=== PATIENT | female | born 1945 | race Caucasian/White ===

== ENCOUNTER 2023-06-01 17:37 | Inpatient (IN) | payer MEDICARE, OTHER, SELFPAY ==
[2023-06-01] VITALS (8 sets, daily range): BP systolic 95–131; BP diastolic 43–114
--- NOTE | 2023-06-01 11:37 | ED.GENMED ---
History of Present Illness
<VIVIAN Sy - Last Filed: 06/01/23 16:33>
General
Chief Complaint: Urinary Symptoms
Source: patient
Time Seen by Provider: 06/01/23 11:19
Nursing documentation reviewed up to this point in time: agreed with
Travel History
Have you had any contact with someone who has COVID-19?: No
Do you have any symptoms of coronavirus? Fever > 100 degrees, chills, cough, shortness of breath, sore throat, loss of taste or smell, muscle aches, or headache?: No
History of Present Illness
History of Present Illness:
78-year-old female from rehab presents to the ER for evaluation of blood in the urine x2. Patient is presently at [facility] for rehab due to difficulty walking. She does get to the bathroom with assistance and with a walker. She denies any
urinary dysuria frequency.
She has had a wet cough for the past 5 days. She denies any fever chills shortness of breath.
Past History
<VIVIAN Sy - Last Filed: 06/01/23 16:33>
Past History
ED Past Medical History: Arrthythmia (Atrial fibrillation), CAD, HTN, NIDDM and Hyperthyroidism
Social History
Tobacco: Non-smoker
Drug: None
Review of Systems
<VIVIAN Sy - Last Filed: 06/01/23 16:33>
Review of Systems
Allergies reviewed?: Yes
All Other Systems: ROS reviewed and negative except as documented in HPI and ROS
Constitutional: Reports no symptoms
EENT: Reports no symptoms
Respiratory: Reports cough; Denies trouble breathing
Cardiac: Reports no symptoms
ABD/GI: Reports no symptoms; Denies abdominal pain, nausea, vomiting or diarrhea
: Reports other (hematuria ); Denies flank pain
Musculoskeletal: Reports other (thigh painb/l x2 weeks )
Skin: Reports no symptoms
Hematologic/Lymphatic: Reports no symptoms
Psychiatric: Reports no symptoms
Phy Exam
<VIVIAN Sy - Last Filed: 06/01/23 16:33>
General Physical Exam
General Presentation: no apparent distress
General age: appears stated age
General Skin: warm and dry
General Habitus: elderly
General Mental: alert
General Hydration: appears well hydrated
Cardiovascular Exam
Cardiovascular Exam: regular rate/rhythm, no murmur and normal peripheral pulses
Pulmonary Exam
Pulmonary Exam: lungs clear and no respiratory distress
Gastrointestinal Exam
Gastrointestinal Exam: non tender and soft
Neurological Exam
Neurological Exam: alert and oriented x3
Musculoskeletal Exam
Musculoskeletal Exam: full ROM and other ( bilateral distal lower extremity pulses no obvious swelling to thighs or redness)
Skin Exam
Skin Exam: normal color and warm/dry
Psychiatric Exam
Psychiatric Exam: normal mood/affect
Course
<VIVIAN Sy - Last Filed: 06/01/23 16:33>
Orders/Labs/Results
Orders:
Orders
06/01/23 11:43
Cardiac Monitoring- Treatment ONCE
IV Insert/Care/Rem.- Treatment PRN
Chest [CR Chest - 2 Views ] Urgent
Comment:
Reason For Exam: cough
06/01/23 11:48
Electrocardiogram (*1) Stat
Reason for Study: Abdominal Pain
EKG- Treatment ONCE
06/01/23 11:55
COVID-19 Antigen Urgent
Source: Nasal Swab
Complete Blood Count/With Diff Urgent
Comprehensive Metabolic Panel Urgent
Urinalysis Reflex To Culture Urgent
Date Specimen was Collected: 06/01/23
Time Specimen was Collected: 11:52
Urine Microscopic Reflex Cult Urgent
Influenza A+B Rapid Molecular Urgent
AYANA Source: Nasal Swab
Specimen Description:
Urine Culture Urgent
AYANA Source: U
Specimen Description:
Date Specimen was Collected: 06/01/23
Time Specimen was Collected: 11:52
06/01/23 14:05
CT Abd/pel Without Iv Or Oral Urgent
Comment:
Reason For Exam: hematuria
Venous Doppler Lwr Ext Bilat [US Periph Venous LOWER Ext Niko] Urgent
Comment:
Reason For Exam: pain
06/01/23 16:34
CBI- Treatment PRN
Solution: nss
Irrigate to Clear?: Yes
Abnormal Lab Results
06/01/23
11:55
RBC 2.92 L 10^6/uL
(4.20-5.40)
Hgb 9.5 L g/dL
(12.0-16.0)
Hct 28.8 L %
(37.0-47.0)
MCH 32.5 H pg
(27.0-31.0)
RDW 15.1 H %
(11.5-14.5)
Abs Immat Gran (auto) 0.1 H 10^3/uL
(0-0.05)
Absolute Neuts (auto) 9.0 H 10^3/uL
(1.4-6.5)
Absolute Lymphs (auto) 1.0 L 10^3/uL
(1.2-3.4)
Immature Gran % 0.6 H %
(0-0.5)
Neutrophils % 83.4 H %
(42.2-75.2)
Lymphocytes % 9.5 L %
(20.5-51.1)
BUN 39 H mg/dl
(7-17)
Creatinine 1.6 H mg/dL
(0.6-1.0)
Glucose 132 H mg/dl
(70-99)
Calcium 7.9 L mg/dl
(8.4-10.2)
AST 61 H U/L
(14-36)
Alkaline Phosphatase 419 H U/L
(38-126)
Albumin 2.7 L g/dl
(3.5-5.0)
Urine Ketones Trace A
(Negative)
Ur Occult Blood Reflex 4+ A
(Negative)
Urine Nitrite (Reflex) Positive A
(Negative)
Leukocyte Esterase Rfl 2+ A
(Negative)
Urine RBC >100 A /HPF
(0-2)
Urine Albumin (Reflex) 2+ A
(Neg - Trace)
06/01/23 11:55
06/01/23 11:55
Vital Signs
Initial and Last Documented VS:
Initial Vital Signs
Temp Pulse Resp Pulse Ox
98.7 F 96 19 95
06/01/23 10:56 06/01/23 10:56 06/01/23 10:56 06/01/23 10:56
Last Documented Vital Signs
Temp Pulse Resp BP Pulse Ox
98.7 F 90 17 95/59 94
06/01/23 10:56 06/01/23 15:45 06/01/23 15:45 06/01/23 14:20 06/01/23 15:45
Size Painter consulted with Physician
Size Painter consulted with physician?: Yes
Name of Physician Consulted: leon
<Drew Sandra, DO - Last Filed: 06/01/23 16:47>
Orders/Labs/Results
Orders:
Orders
06/01/23 11:43
Cardiac Monitoring- Treatment ONCE
IV Insert/Care/Rem.- Treatment PRN
Chest [CR Chest - 2 Views ] Urgent
Comment:
Reason For Exam: cough
06/01/23 11:48
Electrocardiogram (*1) Stat
Reason for Study: Abdominal Pain
EKG- Treatment ONCE
06/01/23 11:55
COVID-19 Antigen Urgent
Source: Nasal Swab
Complete Blood Count/With Diff Urgent
Comprehensive Metabolic Panel Urgent
Urinalysis Reflex To Culture Urgent
Date Specimen was Collected: 06/01/23
Time Specimen was Collected: 11:52
Urine Microscopic Reflex Cult Urgent
Influenza A+B Rapid Molecular Urgent
AYANA Source: Nasal Swab
Specimen Description:
Urine Culture Urgent
AYANA Source: U
Specimen Description:
Date Specimen was Collected: 06/01/23
Time Specimen was Collected: 11:52
06/01/23 14:05
CT Abd/pel Without Iv Or Oral Urgent
Comment:
Reason For Exam: hematuria
Venous Doppler Lwr Ext Bilat [US Periph Venous LOWER Ext Niko] Urgent
Comment:
Reason For Exam: pain
06/01/23 16:34
CBI- Treatment PRN
Solution: nss
Irrigate to Clear?: Yes
Abnormal Lab Results
06/01/23
11:55
RBC 2.92 L 10^6/uL
(4.20-5.40)
Hgb 9.5 L g/dL
(12.0-16.0)
Hct 28.8 L %
(37.0-47.0)
MCH 32.5 H pg
(27.0-31.0)
RDW 15.1 H %
(11.5-14.5)
Abs Immat Gran (auto) 0.1 H 10^3/uL
(0-0.05)
Absolute Neuts (auto) 9.0 H 10^3/uL
(1.4-6.5)
Absolute Lymphs (auto) 1.0 L 10^3/uL
(1.2-3.4)
Immature Gran % 0.6 H %
(0-0.5)
Neutrophils % 83.4 H %
(42.2-75.2)
Lymphocytes % 9.5 L %
(20.5-51.1)
BUN 39 H mg/dl
(7-17)
Creatinine 1.6 H mg/dL
(0.6-1.0)
Glucose 132 H mg/dl
(70-99)
Calcium 7.9 L mg/dl
(8.4-10.2)
AST 61 H U/L
(14-36)
Alkaline Phosphatase 419 H U/L
(38-126)
Albumin 2.7 L g/dl
(3.5-5.0)
Urine Ketones Trace A
(Negative)
Ur Occult Blood Reflex 4+ A
(Negative)
Urine Nitrite (Reflex) Positive A
(Negative)
Leukocyte Esterase Rfl 2+ A
(Negative)
Urine RBC >100 A /HPF
(0-2)
Urine Albumin (Reflex) 2+ A
(Neg - Trace)
06/01/23 11:55
06/01/23 11:55
Vital Signs
Initial and Last Documented VS:
Initial Vital Signs
Temp Pulse Resp Pulse Ox
98.7 F 96 19 95
06/01/23 10:56 06/01/23 10:56 06/01/23 10:56 06/01/23 10:56
Last Documented Vital Signs
Temp Pulse Resp BP Pulse Ox
98.7 F 90 17 95/59 94
06/01/23 10:56 06/01/23 15:45 06/01/23 15:45 06/01/23 14:20 06/01/23 15:45
<VIVIAN Sy - Last Filed: 06/01/23 16:33>
MDM/Problems Addressed
Differential Diagnosis Includes:
Not limited to hematuria, UTI
MDM/Problems Addressed:
Patient is a 70-year-old female from rehab presents with hematuria. She is on Eliquis for A-fib. She denies any fevers and is afebrile here with a normal white count hemoglobin 9.5, patient's BUN/creatinine mildly elevated 39 1.6 mild renal
insufficiency. Patient does have obvious hematuria on exam and this CAT scan shows distended bladder. Patient came back from CAT scan retaining over 500 mL of urine will place Ozuna,'s plan for CBI.
Other CAT scan findings reviewed shows bilateral pelvic calyceal seal ureteral dilation as well as urethral tortuosity. But no evidence for obstructive ureteral calculus
Chronic conditions affecting care:
On Eliquis for A-fib
<VIVIAN Sy - Last Filed: 06/01/23 16:33>
*Radiology
Radiology exam reviewed: radiology read reviewed
*Pulse Oximetry
Patient hypoxic: no
*EKG
Interpreted by ED Provider?: Yes
Heart Rate: 91
Rate: normal
Rhythm: sinus
Ischemia: non-specific ST changes
*Critical Care Note
Total Time (30-74mins, 75-104mins- exclusive of procedures): Not Applicable
ED Attending Note
<VIVIAN Sy - Last Filed: 06/01/23 16:33>
-
Portions of this chart may have been created with voice recognition software.� Occasional wrong word or��sound alike� substitutions may have occurred due to the inherent limitations of voice recognition software.
<Drew Sandra DO - Last Filed: 06/01/23 16:47>
ED Attending Note
Patient seen and examined by attending physician: Yes
I performed the substantive portion of visit, reviewed & personally made and approve the management plan that is documented in note by myself or STARLA.: Yes
ED Attending Note:
Seen with NEWSPAPER INSERTER examined independently elderly female with hematuria looks like she is in retention based upon bladder scan, will place Ozuna consideration for CBI she is on a blood thinner check urine culture
Discharge Plan
Departure
Patient Disposition: Admit
Date of Disposition: 06/01/23
Time of Disposition: 16:43
Admit to: Med/Surg
Admit to doctor: hosptalist
Presentation/result/management discussed w/ accepting MD/DO: Hospitalist
Patient with high blood pressure during this ER visit?: No
Condition: Fair
Covid-19: Not Applicable
Discharge Problem:
Hematuria, Acute urinary retention, renal insufficicieny
Prescriptions:
No Action
losartan 50 mg Tablet
50 mg PO BID
sennosides [senna] 8.6 mg Tablet
8.6 mg PO BID
clonidine HCl 0.1 mg Tablet
0.1 mg PO BID
acetaminophen [Tylenol] 325 mg Tablet
650 mg PO Q6HPRN PRN (Reason: mild pain)
carvedilol [Coreg] 12.5 mg Tablet
12.5 mg PO BID
isosorbide mononitrate [Imdur] 60 mg Tablet Extended Release 24 Hr
60 mg PO DAILY
magnesium hydroxide [Milk of Magnesia] 400 mg/5 mL Suspension
2,400 mg PO [id number] PRN (Reason: if no bm by 3rd day)
bisacodyl [Dulcolax (bisacodyl)] 10 mg Suppository
10 mg PA DAILY PRN (Reason: if no bm aftr mom)
Fleet Enema 19-7 gram/118 mL Enema
118 ml PA DAILYPRN PRN (Reason: if no bm aftr dulcolax)
docusate sodium [Colace] 100 mg Capsule
100 mg PO BID
gabapentin 300 mg Capsule
300 mg PO TID
furosemide [Lasix] 20 mg Tablet
20 mg PO DAILY
loratadine [Claritin] 10 mg Tablet
10 mg PO DAILY
dexlansoprazole [Dexilant] 60 mg Capsule,Biphase Delayed Releas
60 mg PO DAILY
linagliptin 5 mg Tablet
5 mg PO DAILY
Eliquis 5 mg Tablet
5 mg PO BID
oxycodone [OxyContin] 40 mg Tablet,Oral Only,Ext.Rel.12 Hr
40 mg PO BID
Referrals:
Edwin Ugarte MD [Family Provider] -
Interventions
Interventions:
*Risk Screen - Suicide Last Done: 06/01/23 12:05
*General Assessment Last Done: 06/01/23 12:05
*Neglect/Abuse Screening Last Done: 06/01/23 12:05
ED- Fall Risk Assessment Last Done: 06/01/23 12:05
*ED COVID-19 Vaccine History Last Done: 06/01/23 12:05
ED-Female Genitourinary Assessment Last Done: 06/01/23 11:43
[2023-06-01 12:14] LABS: Urine Albumin 2+ (Neg - Trace); Urine Bilirubin Negative (Negative); Urine Character Slightly Cloudy (Clear); Urine Color Red; Urine Glucose Negative (Negative); Urine Ketone Trace (Negative); Urine Leukocyte 2+ (Negative); Urine Nitrite Positive (Negative); Urine Occult Blood 4+ (Negative); Urine Urobilinogen Negative (Neg - 1+)
[2023-06-01 12:15] LABS: % Basophils 0.2 % (0-2); % Eosinophils 0.5 % (0-6); % Immature Granulocytes 0.6 % (0-0.5); % Lymphocytes 9.5 % (20.5-51.1); % Monocytes 5.8 % (1.7-9.3); % Neutrophils 83.4 % (42.2-75.2); Absolute Eosinophils 0.1 10^3/uL (0-0.7); Absolute Immature Granulocytes 0.1 10^3/uL (0-0.05); Absolute Monocytes 0.6 10^3/uL (0.1-0.6); Hematocrit 28.8 % (37.0-47.0); Hemoglobin 9.5 g/dL (12.0-16.0); Mean Corpuscular Hgb 32.5 pg (27.0-31.0); Mean Corpuscular Volume 98.6 fL (81.0-99.0); Mean Platelet Volume 9.1 fL (7.4-10.4); Nucleated Red Blood Cells % 0 %; Platelet Count 326 10^3/uL (130-400); Red Blood Cell Count 2.92 10^6/uL (4.20-5.40); Red Cell Dist. Width 15.1 % (11.5-14.5); White Blood Cell Count 10.8 10^3/uL (4.8-10.8)
[2023-06-01 12:20] LABS: Urine Red Blood Cell >100 /HPF (0-2)
[2023-06-01 12:32] LABS: ALT (SGPT) 27 U/L (0-35); AST (SGOT) 61 U/L (14-36); Albumin 2.7 g/dl (3.5-5.0); Alkaline Phosphatase 419 U/L (38-126); Blood Urea Nitrogen 39 mg/dl (7-17); Calcium 7.9 mg/dl (8.4-10.2); Carbon Dioxide 29 mmol/L (22-30); Chloride 104 mmol/L (98-107); Glucose 132 mg/dl (70-99); Potassium 4.2 mmol/L (3.5-5.1); Sodium 137 mmol/L (135-145); Total Bilirubin 1.1 mg/dl (0.2-1.3); Total Protein 6.6 g/dl (6.3-8.2); eGFR 32.81
[2023-06-01 13:35] LABS: COVID-19 Antigen Negative (Negative)
--- NOTE | 2023-06-01 17:21 | HPS.HSE ---
Addendum entered and electronically signed by Thomas Cooper MD 06/01/23 20:37:
Patient seen and evaluated with VETERANS SERVICE REPRESENTATIVE, I agree with findings on history physical exam and review of system and impression and plan with modifications as indicated below as needed.
Briefly patient is a 78-year-old female with past medical history significant for hypertension diabetes hyperlipidemia and atrial fibrillation is currently on apixaban, seen to the emergency department with complaints of gross hematuria. She did
have urinary retention on imaging however that she has self denies urinary symptoms including dysuria, frequency or urgency or abdominal pain, fevers or chills. She does report bilateral hip and thigh discomfort. Found to have gross hematuria in
the ED with urinary retention of around 500 mL status post placement of urinary catheter for continuous medical irrigation.
Vital signs stable, hemoglobin down to 9.5 from 11 over 4 years ago. BUN/creatinine are not significantly changed compared to prior at that 9 and 1.6 respectively. Electrolytes otherwise unremarkable. Corrected calcium is 8.2. CT of the abdomen
pelvis consistent with bladder distention and hematuria as well as nonobstructing bilateral lithiasis. Incidental finding of biliary ductal dilation dilatation and multiple intrahepatic gallstones which are nonobstructive.
Exam is as per the VETERANS SERVICE REPRESENTATIVE note.
Patient with gross hematuria likely secondary to anticoagulation. No clear precipitant. Possibly caused by stone, infectious cystitis. Plan is to continue CBI until clearance of gross hematuria. Holding apixaban. Urology consulted. Hemoglobin
and obtain type and screen in a.m. DVT prophylaxis with sequential compression devices at this time. The incidental findings of nonobstructive nephrolithiasis currently managed medically. She does complain of bilateral hip and thigh pain with
osteoporosis versus lytic lesions on the CT. Patient has no obvious signs of malignancy otherwise. Recommend outpatient follow-up with routine age-appropriate malignancy screening. No SUZANNE or hypercalcemia to suggest acute treatment for MM but she
can be screened for this as outpatient as well. Also recommend for imaging such as MRI for bilateral hip pain. No obvious radiculopathy and hip pain as been chronic for months. Incidental finding of nonobstructive intrahepatic gallstones with
normal bilis. Recommend outpatient gi follow up.
Original Note:
Family Physician
-
Family Physician: Edwin Ugarte
Chief Complaint
-
blood in urine
History of Present Illness
78 yo female from rehab presents to the ER for evaluation of blood in the urine x2.� [facility] a [facility] for [facility] due to difficulty ambulating.� She denies urgency, frequency or dysuria. She states she has had frequent UTIs in
the past two years but has never had hematuria before. She has had a productive cough for the past 5 days.� She denies any fever, chills or shortness of breath.
Medical History
Past Medical History
Past Medical History: Reports Arrhythmia (afib on Eliquis ), CHF, GERD, HTN, Hypercholesterolemia, NIDDM and Renal Failure (CKD stage 2)
Past Surgical History: Reports None
Social History
Tobacco: Non-smoker
Alcohol: None
Drug: None
Family History
Family History: Not pertinent
Allergies / Home Medications
Allergies reflects when Allergies were last updated in [email or web address].
Home Medications with original date entered in [email or web address]
Allergy/Medication List:
Allergies
Allergy/AdvReac Type Severity Reaction Status Date / Time
No Known Allergies Allergy Unverified 02/03/18 16:09
Home Medications
acetaminophen 325 mg tablet (Tylenol) 650 mg PO Q6HPRN PRN mild pain 06/01/23
apixaban 5 mg tablet (Eliquis) 5 mg PO BID 06/01/23
bisacodyl 10 mg rectal suppository (Dulcolax (bisacodyl)) 10 mg NM DAILY PRN if no bm aftr mom 06/01/23
carvedilol 12.5 mg tablet (Coreg) 12.5 mg PO BID 06/01/23
clonidine HCl 0.1 mg tablet 0.1 mg PO BID 06/01/23
dexlansoprazole 60 mg capsule,biphase delayed release (Dexilant) 60 mg PO DAILY 06/01/23
docusate sodium 100 mg capsule (Colace) 100 mg PO BID 06/01/23
furosemide 20 mg tablet (Lasix) 20 mg PO DAILY 06/01/23
gabapentin 300 mg capsule 300 mg PO TID 06/01/23
isosorbide mononitrate 60 mg tablet,extended release 24 hr 60 mg PO DAILY 06/01/23
linagliptin 5 mg tablet 5 mg PO DAILY 06/01/23
loratadine 10 mg tablet (Claritin) 10 mg PO DAILY 06/01/23
losartan 50 mg tablet 50 mg PO BID 06/01/23
magnesium hydroxide 400 mg/5 mL oral suspension (Milk of Magnesia) 2,400 mg PO [id number] PRN if no bm by 3rd day 06/01/23
oxycodone 40 mg tablet,crush resistant,extended release 12 hr (OxyContin) 40 mg PO BID 06/01/23
sennosides 8.6 mg tablet (senna) 8.6 mg PO BID 06/01/23
sodium phosphates 19 gram-7 gram/118 mL enema (Fleet Enema) 118 ml NM DAILYPRN PRN if no bm aftr dulcolax 06/01/23
Review of Systems
-
History Source: Patient
A 12 point ROS was completed and negative except as noted: Yes
Constitutional: Reports No Symptoms
EENT: Reports No Symptoms
Respiratory: Reports Cough
Cardiac: Reports No Symptoms
Abdomen/GI: Reports No Symptoms
: Reports Bleeding
Musculoskeletal: Reports No Symptoms
Skin: Reports No Symptoms
Neurological: Reports No Symptoms
Endocrine: Reports No Symptoms
Hematologic/Lymphatic: Reports No Symptoms
Psych: Reports No Symptoms
Physical Exam
Vital Signs
Vital Signs
Temp Pulse Resp BP Pulse Ox
98.7 F 90 17 95/59 94
06/01/23 10:56 06/01/23 15:45 06/01/23 15:45 06/01/23 14:20 06/01/23 15:45
Physical Exam
General: Well Developed and Obese
HEENT: NormoCephalic, Anicteric and Atraumatic
Cardiac: Irregular Rhythm (afib)
Breast: Deferred by me
GI: Soft, Non Tender, Non Distended, Normal Bowel Sounds and Other (hernia)
Rectal: Deferred by Provider
Genito-urinary: Bloody Urine, Ozuna and Continuous Bladder Irrigation
Musculoskeletal: No Clubbing, No Cyanosis, Edema, Left Lower Extremity and Edema, Right Lower Extremity
Skin: Warm and Dry
Neuro: Awake, Alert, Oriented and AO x 3
Hematologic/Lymphatic: No Lymphadenopathy
Psych: Intact Judgment/Insight
Laboratory Results
-
06/01/23 11:55
06/01/23 11:55
Laboratory Results
Total Bilirubin 1.1 mg/dl (0.2-1.3) 06/01/23 11:55
AST 61 U/L (14-36) H 06/01/23 11:55
ALT 27 U/L (0-35) 06/01/23 11:55
Alkaline Phosphatase 419 U/L (38-126) H 06/01/23 11:55
Impression/Plan
-
IMPRESSION/PLAN:
#Hematuria
#Acute Urinary Retention
-Ozuna placed in ED, CBI in place
-Urology c/s
-Urine cx pending
-CT Abdomen IMPRESSION: Status post cholecystectomy. There are numerous rounded foci of increased density within the common hepatic duct and the common bile duct, which are highly suspicious for bile duct calculi. No gross evidence for intrahepatic
bile duct dilation. The common bile duct measures up to 14 mm, which is considered dilated, with top normal considered 10 mm.
Bilateral nephrolithiasis. The bladder is mildly distended. There is bilateral pelvicalyceal and ureteral dilation as well as ureteral tortuosity. No evidence for obstructing ureteral calculus bilaterally. These findings could be on the basis of
moderate bladder distention. Please correlate with the patient having any difficulty in voiding the bladder.
Severe fatty infiltration of the pancreas.
Large overhanging pannus of the abdomen and pelvis. There is also an umbilical broad-based hernia, containing a loop of non obstructed bowel.
#Essential Hypertension
-Continue clonidine, imdur, losartan and coreg
#Atrial fibrillation
-Hold Eliquis
#CHF
-Continue lasix
#NIDDM
-Hold linagliptin
-ISS
#CKD stage 2
-Current cr 1.6, last cr 1.2 in 2018
-avoid nephrotoxic agents
-BMP in am
#Wounds to legs bilaterally
-Wound c/s
DNR- DNR status discussed with patient
DVT Prophylaxis: Eliquis on hold due to hematuria, cannot use SCDs due to b/l leg wounds
--- NOTE | 2023-06-01 17:53 | CON.MD ---
Consultation - Medical
-
see dictated note
pt with no sig prior gu hx
on eliquis
morbid obesity
visiting family- could not get up off toliet- sent to an outside hospital- ? dx
discharged to rehab
has been in a diaper for some time- urine just runs out of her
noticed some blood in the urine
had ct- distended bladder with mild bilateral hydro suspected due to bladder obstruction- no obvious intrinsic bladder mass
3 way dailey placed- on light cbi urine is running just light pink
cx is pending
plan
hold eliquis
continue cbi
[2023-06-01] MEDS: COLACE 100 MG PO (20:54)
[2023-06-01] MEDS: COZAAR 50 MG PO (20:54)
[2023-06-01] MEDS: COREG 12.5 MG PO (20:54)
[2023-06-01] MEDS: CATAPRES 0.100000000000000006 MG PO (20:54)
[2023-06-01] MEDS: TYLENOL 650 MG PO (20:55)
[2023-06-01] MEDS: IMDUR (EXTENDED RELEASE) 60 MG PO (22:38)
[2023-06-01] MEDS: OXYCONTIN (CONTROLLED RELEASE) 40 MG PO (22:38)
[2023-06-01] MEDS: ROBITUSSIN 100 MG PO (22:39)
[2023-06-01] MEDS: NEURONTIN 300 MG PO (22:39)
[2023-06-02] MEDS: ROBITUSSIN 100 MG PO ×4 (05:26→21:44)
[2023-06-02 06:06] VITALS: BMI 38.3
[2023-06-02 06:30] VITALS: BMI 38.3
[2023-06-02 07:15] LABS: % Basophils 0.1 % (0-2); % Eosinophils 0.4 % (0-6); % Immature Granulocytes 0.7 % (0-0.5); % Lymphocytes 11.3 % (20.5-51.1); % Monocytes 7.9 % (1.7-9.3); % Neutrophils 79.6 % (42.2-75.2); Absolute Immature Granulocytes 0.1 10^3/uL (0-0.05); Absolute Lymphocytes 0.9 10^3/uL (1.2-3.4); Absolute Monocytes 0.6 10^3/uL (0.1-0.6); Absolute Neutrophils 6.1 10^3/uL (1.4-6.5); Hematocrit 24.9 % (37.0-47.0); Hemoglobin 8.2 g/dL (12.0-16.0); Mean Corp Hgb Conc. 32.9 g/dL (33.0-37.0); Mean Corpuscular Hgb 32.4 pg (27.0-31.0); Mean Corpuscular Volume 98.4 fL (81.0-99.0); Mean Platelet Volume 9.2 fL (7.4-10.4); Nucleated Red Blood Cells % 0 %; Platelet Count 270 10^3/uL (130-400); Red Blood Cell Count 2.53 10^6/uL (4.20-5.40); Red Cell Dist. Width 14.9 % (11.5-14.5); White Blood Cell Count 7.7 10^3/uL (4.8-10.8)
--- NOTE | 2023-06-02 07:20 | W.PN.URO.CBU ---
Today's Communication / Plan
-
continue cbi- wean as possible
hold eliquis
await ucx result
Assessment / Plan
-
urinary retention
hydro likely secondary to above (cr at baseline)
hematuria
to continue cbi- wean as possible
hold eliquis and other blood thinners
await ucx
possible that pt will need to be discharged with cath for outpt vodiing trail as suspect some chronicity to urinary retention
Diagnosis
-
Date of Service: June 02, 2023
-
Patient Diagnosis:
hematuria
urinary retention
hydro
Subjective
-
pt stable
urine on moderate drip cbi clearing
no discomfort
ucx pending
Objective
-
Vital Signs
Temp Pulse Resp BP Pulse Ox
99.4 F 81 18 108/54 95
06/01/23 23:30 06/01/23 23:30 06/01/23 23:30 06/01/23 23:30 06/01/23 23:30
Intake and Output
06/01/23 06/02/23 06/03/23
06:59 06:59 06:59
Intake Total 248 / 248
Balance 248 / 248
Intake:
Oral fluids 248 / 248
Physical Exam
-
General - no acute distress
Abdomen - soft, non-tender, obese
[2023-06-02 07:26] VITALS: BP 104/65
[2023-06-02 08:06] LABS: ALT (SGPT) 20 U/L (0-35); AST (SGOT) 42 U/L (14-36); Albumin 2.2 g/dl (3.5-5.0); Alkaline Phosphatase 324 U/L (38-126); Blood Urea Nitrogen 36 mg/dl (7-17); Calcium 7.4 mg/dl (8.4-10.2); Carbon Dioxide 28 mmol/L (22-30); Chloride 104 mmol/L (98-107); Estimated Creatinine Clearance 34 ml/min; Glucose 95 mg/dl (70-99); Potassium 3.4 mmol/L (3.5-5.1); Sodium 136 mmol/L (135-145); Total Bilirubin 1.1 mg/dl (0.2-1.3); Total Protein 5.7 g/dl (6.3-8.2); eGFR 32.81
[2023-06-02] MEDS: PROTONIX 40 MG PO (08:40)
[2023-06-02] MEDS: CLARITIN 10 MG PO (08:40)
[2023-06-02] MEDS: COLACE 100 MG PO ×2 (08:40→21:03)
[2023-06-02] MEDS: CATAPRES 0.100000000000000006 MG PO ×2 (08:40→21:04)
[2023-06-02] MEDS: OXYCONTIN (CONTROLLED RELEASE) 40 MG PO ×2 (08:40→21:02)
[2023-06-02] MEDS: LASIX 20 MG PO (08:40)
[2023-06-02] MEDS: COREG 12.5 MG PO ×2 (08:40→21:04)
[2023-06-02] MEDS: NEURONTIN 300 MG PO ×3 (08:40→21:44)
[2023-06-02] MEDS: COZAAR 50 MG PO ×3 (08:41→21:04)
[2023-06-02] MEDS: DESENEX/MITRAZOL/ZEASORB 1 APPLIC TOPICAL ×2 (08:41→21:03)
[2023-06-02] MEDS: KCL 40 MEQ PO (10:07)
--- NOTE | 2023-06-02 11:58 | W.PN.HOSP.TC ---
Today's Communication/Plan
-
start rocephin
follow cultures
check ECHO
Assessment / Plan
Assessment / Plan
pt is a 78 year old female
acute Hematuria with acute retention--apprec urology--CBI continuing--urine now clear--blood culture with gm negative bacilli--urine culture pending but likely the source--CT scan with bilateral nephrolithiasis, bladder distended with bilateral
pelvicalyceal and ureteral dilation as well as ureteral tortuosity. No evidence for obstructing ureteral calculus bilaterally--start rocephin
hypokalemia--replete
Essential Hypertension--Continue clonidine, imdur, losartan and coreg
presumed paroxysmal Atrial fibrillation---Holding Eliquis
CHF-- unknown type--cont lasix--check echo
cough --unclear cause--on rocephin--CXR without acute findings--add tessalon pearles
NIDDM--Hold linagliptin?--ISS
CKD stage 2--Current cr 1.6, last cr 1.2 in 2018--avoid nephrotoxic agents
Wounds to legs bilaterally--Wound c/s
DNR- DNR status was discussed with patient
DVT Prophylaxis: Eliquis on hold due to hematuria, cannot use SCDs due to b/l leg wounds
Anticipated Discharge: > 48 hours
Subjective/Interval History
-
Date of Service: June 02, 2023
pt c/o coughing
Objective Data
-
Labs:
Laboratory Results
06/02/23
06:34
WBC 7.7
Hgb 8.2 L
Hct 24.9 L
Plt Count 270
Sodium 136
Potassium 3.4 L
Chloride 104
Carbon Dioxide 28
BUN 36 H
Creatinine 1.6 H
Glucose 95
Calcium 7.4 L
Total Bilirubin 1.1
AST 42 H
ALT 20
Alkaline Phosphatase 324 H
Vital Signs:
max temp for 24 hours
06/01/23
23:30
Temp 99.4 F
Vital Signs
Temp Pulse Resp BP Pulse Ox
98.4 F 108 17 104/65 93
06/02/23 07:26 06/02/23 07:26 06/02/23 07:26 06/02/23 07:26 06/02/23 07:26
I&O
06/01/23 06/02/23 06/03/23
06:59 06:59 06:59
Intake Total 248 / 248
Output Total 1200 / 1200 1800 / 1800
Balance -952 / -952 -1800 / -1800
Review of Systems
-
All other systems: Reviewed and negative
Respiratory: Reports Cough
Physical Exam
-
General: Well Developed, Well Nourished, No Apparent Distress and Morbidly Obese
HEENT: Normocephalic and Atraumatic; Negative Oxygen
Respiratory: Rhonchi
Cardiac: Regular Rhythm and S1/S2; Negative Murmur
GI: Soft, Nontender, Nondistended and Normal Bowel Sounds
Genito-urinary: Clear Urine and Continuous Bladder Irrigation
Musculoskeletal: No Clubbing, No Cyanosis and No Edema
Neuro: Awake and Alert
Psych: Calm
[2023-06-02] MEDS: STERILE WATER FOR INJECTION 10 ML IV (13:00)
[2023-06-02] MEDS: ROCEPHIN 1000 MG IV (13:01)
--- NOTE | 2023-06-02 15:37 | CM ---
Chart reviewed. Spoke with pt at bedside
Reports was at [facility] - short-term after hospitalization - confirmed with Arely
Lives with daughter and son in law in a one story home
Was ambulating with walker at home, able to adl's with assist
Denies other DME
Has had [facility] in past
PCP - unsure
Pharm - [facility]
PT/OT pending
Plan - anticipate return to [facility] - no auth needed(will need 3 nights)
[2023-06-02 15:42] VITALS: BP 96/44
[2023-06-02] MEDS: IMDUR (EXTENDED RELEASE) 60 MG PO (21:44)
[2023-06-02 23:30] VITALS: BP 103/57
[2023-06-03 06:00] VITALS: BMI 37.3
--- NOTE | 2023-06-03 06:27 | W.PN.URO.CBU ---
Today's Communication / Plan
-
continue cbi= stop at midnight
treat uti
Assessment / Plan
-
urinary retention
hydro likely secondary to above (cr at baseline)
hematuria
proteus uti/bactermia
urine clear on slow drip cbi
hematuria likely secondary to uti/rentention and eliquis
continue cbi today to help clear bladder debris- hold at midnight tonight
start flomax
treat UTI
plan for TOV prior to discharge- although suspect pt prob has some degree of chronic retnetion and may need dailey at time of discharge
will follow
Diagnosis
-
Date of Service: June 03, 2023
-
Patient Diagnosis:
hematuria
urinary retention
hydro
proteus uti/bacteremia
Subjective
-
pt feels ok
urine clear on slow drip cbi
Objective
-
Vital Signs
Temp Pulse Resp BP Pulse Ox
99.2 F 94 20 103/57 93
06/03/23 03:38 06/02/23 23:30 06/02/23 23:30 06/02/23 23:30 06/02/23 23:30
Intake and Output
06/01/23 06/02/23 06/03/23
06:59 06:59 06:59
Intake Total 248 / 248 960 / 960
Output Total 1200 / 1200 2800 / 2800
Balance -952 / -952 -1840 / -1840
Intake:
Oral fluids 248 / 248 960 / 960
Output:
True Urine Output from CBI 1200 / 1200 2800 / 2800
Physical Exam
-
General - no acute distress
Abdomen -nontender
Genitalia - dailey in place
[2023-06-03 06:50] LABS: Hematocrit 23.2 % (37.0-47.0); Hemoglobin 7.6 g/dL (12.0-16.0); Mean Corp Hgb Conc. 32.8 g/dL (33.0-37.0); Mean Corpuscular Hgb 31.9 pg (27.0-31.0); Mean Corpuscular Volume 97.5 fL (81.0-99.0); Mean Platelet Volume 9.5 fL (7.4-10.4); Platelet Count 228 10^3/uL (130-400); Red Blood Cell Count 2.38 10^6/uL (4.20-5.40); Red Cell Dist. Width 14.8 % (11.5-14.5); White Blood Cell Count 6.4 10^3/uL (4.8-10.8)
[2023-06-03 07:00] VITALS: BP 109/64
[2023-06-03 07:13] LABS: ALT (SGPT) 34 U/L (0-35); AST (SGOT) 161 U/L (14-36); Albumin 2.1 g/dl (3.5-5.0); Alkaline Phosphatase 613 U/L (38-126); Blood Urea Nitrogen 33 mg/dl (7-17); Calcium 7.1 mg/dl (8.4-10.2); Carbon Dioxide 29 mmol/L (22-30); Chloride 103 mmol/L (98-107); Estimated Creatinine Clearance 31 ml/min; Glucose 118 mg/dl (70-99); Magnesium 1.5 mg/dl (1.6-2.3); Potassium 3.7 mmol/L (3.5-5.1); Sodium 135 mmol/L (135-145); Total Protein 5.5 g/dl (6.3-8.2)
[2023-06-03] MEDS: FLOMAX 0.400000000000000022 MG PO (09:04)
[2023-06-03] MEDS: CLARITIN 10 MG PO (09:04)
[2023-06-03] MEDS: NEURONTIN 300 MG PO ×3 (09:04→21:37)
[2023-06-03] MEDS: LASIX 20 MG PO (09:05)
[2023-06-03] MEDS: PROTONIX 40 MG PO (09:05)
[2023-06-03] MEDS: CATAPRES 0.100000000000000006 MG PO ×2 (09:05→20:34)
[2023-06-03] MEDS: OXYCONTIN (CONTROLLED RELEASE) 40 MG PO ×2 (09:05→20:32)
[2023-06-03] MEDS: COLACE 100 MG PO ×2 (09:05→20:32)
[2023-06-03] MEDS: COREG 12.5 MG PO ×2 (09:06→20:35)
[2023-06-03] MEDS: COZAAR 50 MG PO ×2 (09:06→20:34)
[2023-06-03] MEDS: DESENEX/MITRAZOL/ZEASORB 1 APPLIC TOPICAL ×2 (09:06→20:33)
--- NOTE | 2023-06-03 09:11 | WOUNDNOTE ---
[facility] RN note: Patient admitted with hematuria with retention, currently with Ozuna and CBI. Patient admitted from [facility].
See H&P for complete history.
PMH: HTN, a fib (Eliquis currently on hold), NIDDM, CKD2, leg wounds, obesity.
Wound Location and type/assessment: Patient admitted with: an unstageable R heel pressure injury, brown/black eschar with small pink tissue, R lateral calf deep dermal skin tear, L lateral calf full thickness to subcutaneous layer or deeper
wound/hematoma with surrounding erythema. Patient on IV Rocephin. Trace LE edema. +Palpable pedal pulses. LE venous Doppler negative for DVT. Sacral stage 2 pressure injuries. R arm small dermal skin tears. Ecchymotic area L arm.
Appetite: good.
Pressure redistribution devices in place: Versacare Accumax. Patient stated she's been non ambulatory.
Plan: Sacral, LE and R heel dressings changed. Patient turned and air overlay applied with help from DIANE Blake. CELY Maki assisted with LE wound care. Heels off bed with pillow and air chair cushion. t/c SPD and ordered Foot Waffle boots.
Discussed with CELY Maki.
Will confirm orders with hospitalist.
Care plan to be updated and will follow as needed.
Note to case management of equipment requested for discharge: air mattress.
Recommend follow up at wound care center upon discharge.
--- NOTE | 2023-06-03 09:21 | WOUNDNOTE ---
R CALF (LATERAL LOWER)
--- NOTE | 2023-06-03 09:30 | WOUNDNOTE ---
[facility] RN note: Patient admitted with hematuria with retention, currently with Ozuna and CBI. Patient admitted from [facility].
See H&P for complete history.
PMH: HTN, a fib (Eliquis currently on hold), NIDDM, CKD2, leg wounds, obesity.
Wound Location and type/assessment: Patient admitted with: an unstageable R heel pressure injury, brown/black eschar with small pink tissue, R lateral calf skin tear to subcutaneous layer, L lateral calf full thickness to subcutaneous layer or
deeper wound/hematoma with surrounding erythema. Patient on IV Rocephin. Trace LE edema. +Palpable pedal pulses. LE venous Doppler negative for DVT. Sacral stage 2 pressure injuries. R arm small dermal skin tears. Ecchymotic area L arm.
Appetite: good.
Pressure redistribution devices in place: Versacare Accumax. Patient stated she's been non ambulatory.
Plan: Sacral, LE and R heel dressings changed. Patient turned and air overlay applied with help from DIANE Blake. CELY Maki assisted with LE wound care. Heels off bed with pillow and air chair cushion. t/c SPD and ordered Foot Waffle boots.
Discussed with CELY Maki.
Updated and confirmed orders with Dr. Rahman; defer to hospitalist if wants a R heel x-ray to r/o OM or podiatry/surgeon consult to evaluate for debridement.
Care plan to be updated and will follow as needed.
Note to case management of equipment requested for discharge: air mattress.
Recommend follow up at wound care center upon discharge.
--- NOTE | 2023-06-03 10:00 | WOUNDNOTE ---
[facility] RN note: russ texted Senior Net Developer Architect Naina Potter re: recommend air mattress at SNF; patient has stage 2 sacral pressure injury and R heel ulcer.
[2023-06-03 11:40] LABS: Hematocrit 23.8 % (37.0-47.0); Hemoglobin 7.9 g/dL (12.0-16.0)
--- NOTE | 2023-06-03 12:07 | W.PN.HOSP.TC ---
Today's Communication/Plan
-
Monitor hemoglobin
ID consult
Right heel x-ray
Podiatry consult
PT/OT
Assessment / Plan
Assessment / Plan
Gen-AAOx3, NAD, obese, pale
HEENT-NC, AT, anicteric, clear oral mm
Neck-supple
CV-reg, no M, +S1/S2
Lungs-clear B/L
Abd-soft, NT, ND
Ext-no edema
Musculoskeletal-no cyanosis, clubbing
Skin-warm and dry
Neuro-grossly non-focal
Psych-calm, cooperative
Sepsis due to UTI -blood cultures positive for Proteus species. Urine culture shows Citrobacter and Proteus. Consult ID. Currently on ceftriaxone.
Acute Hematuria with acute retention--apprec urology--CBI continuing--urine now clear--CT scan with bilateral nephrolithiasis, bladder distended with bilateral pelvicalyceal and ureteral dilation as well as ureteral tortuosity. No evidence for
obstructing ureteral calculus bilaterally.
Asymptomatic common hepatic duct/common bile duct stones -noted on CT scan. No abdominal pain currently. Bilirubin and ALT normal. AST and alkaline phosphatase elevated. Monitor for now.
Unstageable right heel pressure injury -check x-ray of heel, rule out osteomyelitis. Consult podiatry.
Right lateral calf skin tear to subcutaneous layer, left lateral calf full-thickness to subcutaneous layer or deeper wound hematoma with surrounding erythema - continue local wound care. Air mattress ordered.
Acute on chronic normocytic anemia -possibly related to hematuria. Hemoglobin 7.6 this morning. Repeat 7.9. Transfusion consent obtained from patient. Will transfuse if hemoglobin drops below 7. Baseline hemoglobin unknown. I left a message
for patient's primary care physician to call me back. Dr. Jay Reilly, .
Hypokalemia -resolved.
Hypomagnesemia - will replete.
Essential Hypertension--Continue clonidine, imdur, losartan and coreg
Presumed paroxysmal Atrial fibrillation---Holding Eliquis in light of acute on chronic anemia, presentation with hematuria.
Chronic CHF-- unknown type--cont lasix--check echo
Subacute bronchitis -likely viral in nature. Will order Acapella. Admission chest x-ray clear.
DM2 without hyperglycemia -Hold linagliptin?--ISS
CKD stage 3b--Current cr 1.7, last cr 1.2 in 2018--avoid nephrotoxic agents. Baseline creatinine unknown.
Obesity due to excess calories
DNR
DVT Prophylaxis: Eliquis on hold due to hematuria, cannot use SCDs due to b/l leg wounds
PT/OT
Anticipated Discharge: > 48 hours
Subjective/Interval History
-
Date of Service: June 03, 2023
Patient seen and examined. Complaining of pain in both thighs.
Objective Data
-
Labs:
Laboratory Results
06/03/23 06/03/23
06:02 11:28
WBC 6.4
Hgb 7.6 L 7.9 L
Hct 23.2 L 23.8 L
Plt Count 228
Sodium 135
Potassium 3.7
Chloride 103
Carbon Dioxide 29
BUN 33 H
Creatinine 1.7 H
Glucose 118 H
Calcium 7.1 L
Total Bilirubin 1.0
AST 161 H
ALT 34
Alkaline Phosphatase 613 H
Vital Signs:
Vital Signs
Temp Pulse Resp BP Pulse Ox
98.5 F 106 18 109/64 92
06/03/23 07:00 06/03/23 07:00 06/03/23 07:00 06/03/23 07:00 06/03/23 07:00
I&O
06/02/23 06/03/23 06/04/23
06:59 06:59 06:59
Intake Total 248 / 248 1080 / 1080
Output Total 1200 / 1200 3100 / 3100
Balance -952 / -952 -2019 / -2019
Review of Systems
-
History Source: Patient
All other systems: Reviewed and negative
[2023-06-03 12:11] VITALS: BP 98/46; PULSE 73; O2SAT 94
[2023-06-03 12:13] VITALS: BP 98/46; PULSE 73; O2SAT 95
[2023-06-03] MEDS: MAGNESIUM SULFATE 50 IV (12:15)
[2023-06-03] MEDS: ROBITUSSIN 100 MG PO ×2 (12:15→21:36)
[2023-06-03] MEDS: STERILE WATER FOR INJECTION 10 ML IV (12:16)
[2023-06-03] MEDS: ROCEPHIN 1000 MG IV (12:16)
--- NOTE | 2023-06-03 14:11 | CON.ID ---
Consultation
-
Date/Time Consultation Requested: 06/03/23 11:18
Date/Time Consultation Performed: 06/03/23 14:12
Requesting Provider: Dr Rahman
Performing Provider: Dr Saravia
Reason for Consultation: UTI
Chief Complaint / Past History
Chief Complaint
hematuria
History of Present Illness
Ms Valentine is a 78 alfonzo old female with history notable for A fib on apixaban, recurrent UTIs, class II obesity seen in the ER for gross hematuria with urinary retention. No dysuria, frequency, urgency, abdominal pain, fevers or chills. Presents
from halfway for difficulty ambulation.
Since arrival tmax 101 orally, bp stable, HR mostly normal occasionally low 100s, wbc initially 10.8 now 6.4, gb from 9.5 to 7.9, L shift was noted on arrival, cr baseline at least 1.2, on arrival 1.6, UA >100 rbc/hpf unable to count wbcs, covid ag
neg. t bili 1.0, ast 161, alk 34, alk phos now 613,
Found to have retention to 500 ccs and had placement of dailey and started on CBI. CT a/p without IV or oral contrast: bile duct calculit without bile duct dilitation, s/p cholecystectomy, bilateral nephrolithiasis - no obstructing stones, 3/ CXR:
clear, vascular US: no dvt, right heel, urine cx: citrobacter and proteus, single blood culture with proteus
Past History
Additional Past Medical History:
Arrhythmia (afib on Eliquis ), CHF, GERD, HTN, Hypercholesterolemia, NIDDM and Renal Failure (CKD stage 2)
Past Surgical History: None
Allergy History:
No Known Allergies Allergy (Unverified 02/03/18 16:09)
Medications Reviewed: Yes
Social History
Tobacco: Non-Smoker
Alcohol: None
Drug: None
Family History
Family History: Not Pertinent
Review of Systems
Review of Systems
General: Negative Fever or Chills
All systems: All other systems were reviewed and were negative
Vital Signs
Temp Pulse Resp BP Pulse Ox
98.5 F 106 18 109/64 92
06/03/23 07:00 06/03/23 07:00 06/03/23 07:00 06/03/23 07:00 06/03/23 07:00
Physical Exam
Physical Exam
Constitutional: No Acute Distress and Obese
Cardiovascular: Regular Rate and S1/S2; Negative Murmur or Rub
Pulmonary: Clear and Symmetric; Negative Wheezes, Rales or Rhonchi
Gastrointestinal: Soft, Non Tender, Non Distended and Normal Bowel Sounds
Genito-Urinary: Hematuria; Negative Suprapubic Tenderness
Skin: Warm and Dry; Negative Rash or Jaundice
Wound: Other (wounds on the bilateral calfs with bruising - no eythema, warmth, tenderness or drainage, also a wound on the arm - reports easy skin tear/bruising)
Neurological: Awake
Psychological: Calm
Lab / Diagnostic Study Results
06/03/23 11:28
06/03/23 06:02
Abs Immat Gran (auto) 0.1 10^3/uL (0-0.05) H 06/02/23 06:34
Absolute Neuts (auto) 6.1 10^3/uL (1.4-6.5) 06/02/23 06:34
Absolute Lymphs (auto) 0.9 10^3/uL (1.2-3.4) L 06/02/23 06:34
Absolute Monos (auto) 0.6 10^3/uL (0.1-0.6) 06/02/23 06:34
Absolute Basos (auto) 0.0 10^3/uL (0-0.2) 06/02/23 06:34
Immature Gran % 0.7 % (0-0.5) H 06/02/23 06:34
Neutrophils % 79.6 % (42.2-75.2) H 06/02/23 06:34
Lymphocytes % 11.3 % (20.5-51.1) L 06/02/23 06:34
Monocytes % 7.9 % (1.7-9.3) 06/02/23 06:34
Eosinophils % 0.4 % (0-6) 06/02/23 06:34
Basophils % 0.1 % (0-2) 06/02/23 06:34
Microbiology Results
Micro:
06/01/23 11:55 Urine Culture - Final
Urine Citrobacter species
Proteus mirabilis
06/01/23 23:59 MRSA Screen - Final
Nose Staph aureus MRSA
06/01/23 19:39 Blood Culture - Preliminary
Blood/Venous Proteus species
Gram Stain - Final
06/01/23 11:55 Influenza Types A & B (COLE) - Final
Nasal Swab Negative for Influenza A & B, NAAT
Negative results must be combined with clinical observations
and patient history.
Nucleic Acid Amplification test (NAAT)performed on the
[employer] platform.
Assessment / Plan
UTI due to Proteus and Citrobacter
Proteus Bacteremia
Bronchitis
SUZANNE +/- CKD
DM2 on oral hypoglycemics
- repeat blood cultures x2
- check a1c
- note plan to stop cbi at midnight
- likely due to obstruction from hematuria
- continue ceftriaxone day 2 of rx
- follow clinically
R heel wound with eschar
- pending Xray
- off loading
- no evidence of local cellulitis at this time
Multipe wounds on the bilateral lower extremitities - w
[2023-06-03 14:42] VITALS: BMI 37.3
[2023-06-03 16:00] VITALS: BP 94/50
--- NOTE | 2023-06-03 18:11 | CON.MD ---
Consultation - Medical
-
Consultation Requested: Dr Isaiah Rahman on 06/03/23 11:25
Date/Time Consultation Performed: Dr Reema Jenkins on 06/03/23 1730
Reason for Consultation: Right heel wound/LE wounds
Chief Complaint / Past History
Chief Complaint
hematuria
History of Present Illness
-
Irma Valentine is a 78 alfonzo old female well known to me from outpatient care with history DM2, PAD, LE edema, A fib on apixaban, recurrent UTIs, obesity admitted to ER for gross hematuria with urinary retention/urosepsis and open wounds to her legs
from trauma related to wheelchair injury at [facility] and right heel decub.
Admits to pain to the right heel and B/L legs
Past History
Additional Past Medical History:
Arrhythmia (afib on Eliquis ), CHF, GERD, HTN, Hypercholesterolemia, NIDDM and Renal Failure (CKD stage 2)
Past Surgical History: None
Allergy History: NKDA
Medications Reviewed: Yes
Social History
Tobacco: Non-Smoker
Alcohol: None
Drug: None
Family History
Family History: Not Pertinent
Review of Systems
Review of Systems
General: Negative Fever or Chills
All systems: All other systems were reviewed and were negative
Vital Signs:
Temp Pulse Resp BP Pulse Ox
�98.5 F �106 �18 �109/64 �92
�06/03/23 07:00 �06/03/23 07:00 �06/03/23 07:00 �06/03/23 07:00 �06/03/23 07:00
Physical Exam
Constitutional: No Acute Distress and Obese
LE focused:
Pedal pulses are palpable, feet are warm and dry.
Right heel with central area of necrosis and granulation to periphery. + tender to touch, no bone is exposed, no undermining or tunneling. Measures approx 2.5cm x 3cm
RLE skin tear/hematoma-appears uninfected. No cellulitis
LLE wounds-originally a skin tear now 3 wounds that are fibrogranular and appear to have hematoma to the left lateral leg, no cellulitis
Mild to moderated edema to B/L LEs
Abs Immat Gran (auto) �0.1 10^3/uL (0-0.05)� H 06/02/23� 06:34� �
Absolute Neuts (auto) �6.1 10^3/uL (1.4-6.5)� 06/02/23� 06:34� �
Absolute Lymphs (auto) �0.9 10^3/uL (1.2-3.4)� L 06/02/23� 06:34� �
Absolute Monos (auto) �0.6 10^3/uL (0.1-0.6)� 06/02/23� 06:34� �
Absolute Basos (auto) �0.0 10^3/uL (0-0.2)� 06/02/23� 06:34� �
Immature Gran % �0.7 % (0-0.5)� H 06/02/23� 06:34� �
Neutrophils % �79.6 % (42.2-75.2)� H 06/02/23� 06:34� �
Lymphocytes % �11.3 % (20.5-51.1)� L 06/02/23� 06:34� �
Monocytes % �7.9 % (1.7-9.3)� 06/02/23� 06:34� �
Eosinophils % �0.4 % (0-6)� 06/02/23� 06:34� �
Basophils % �0.1 % (0-2)� 06/02/23� 06:34� �
Assessment / Plan
1-DM2 controlled w/meds- HgA1c -pending
2-Right heel wound with eschar- will begin enzymatic debridement with santyl ointment and debride once less adhered secondary to pain
-Xray- reviewed personally-no erosive changes to heel to suggest osteomyelitis, continue offloading
3-Hematoma LLE/skin tear and trauma to lateral legs-wound care clarified. jennifer LLE, Meenakshiic RLE, 6 in frances B/L with mild compression
Will follow prn while here
[2023-06-03] MEDS: IMDUR (EXTENDED RELEASE) 60 MG PO (21:37)
[2023-06-03 23:52] VITALS: BP 102/56
[2023-06-04] MEDS: ROBITUSSIN 100 MG PO ×3 (03:37→20:03)
[2023-06-04 06:29] LABS: % Basophils 0.1 % (0-2); % Eosinophils 0.7 % (0-6); % Immature Granulocytes 0.7 % (0-0.5); % Lymphocytes 13.1 % (20.5-51.1); % Monocytes 8.9 % (1.7-9.3); % Neutrophils 76.5 % (42.2-75.2); Absolute Eosinophils 0.1 10^3/uL (0-0.7); Absolute Immature Granulocytes 0.1 10^3/uL (0-0.05); Absolute Lymphocytes 0.9 10^3/uL (1.2-3.4); Absolute Monocytes 0.6 10^3/uL (0.1-0.6); Absolute Neutrophils 5.1 10^3/uL (1.4-6.5); Hematocrit 24.3 % (37.0-47.0); Hemoglobin 8.1 g/dL (12.0-16.0); Mean Corp Hgb Conc. 33.3 g/dL (33.0-37.0); Mean Corpuscular Hgb 32.4 pg (27.0-31.0); Mean Corpuscular Volume 97.2 fL (81.0-99.0); Mean Platelet Volume 9.5 fL (7.4-10.4); Nucleated Red Blood Cells % 0 %; Platelet Count 271 10^3/uL (130-400); Red Cell Dist. Width 14.5 % (11.5-14.5); White Blood Cell Count 6.7 10^3/uL (4.8-10.8)
[2023-06-04 06:40] LABS: ALT (SGPT) 27 U/L (0-35); AST (SGOT) 111 U/L (14-36); Albumin 2.1 g/dl (3.5-5.0); Alkaline Phosphatase 469 U/L (38-126); Blood Urea Nitrogen 34 mg/dl (7-17); Calcium 7.6 mg/dl (8.4-10.2); Carbon Dioxide 31 mmol/L (22-30); Chloride 101 mmol/L (98-107); Estimated Creatinine Clearance 38 ml/min; Glucose 97 mg/dl (70-99); Potassium 3.7 mmol/L (3.5-5.1); Sodium 135 mmol/L (135-145); Total Bilirubin 0.8 mg/dl (0.2-1.3); Total Protein 5.7 g/dl (6.3-8.2); eGFR 38.51
--- NOTE | 2023-06-04 07:20 | W.PN.URO.CBU ---
Today's Communication / Plan
-
continue dailey
treat UTI
flomax
dailey removal prior to discharge
Assessment / Plan
-
urinary retention
hydro likely secondary to above (cr at baseline)
hematuria
proteus + citrobacter uti/bactermia
urine clear
hematuria likely secondary to uti/rentention and eliquis
on flomax
treat UTI
plan for TOV prior to discharge- although suspect pt prob has some degree of chronic retnetion and may need dailey at time of discharge
can restart eliquis after TOV
Diagnosis
-
Date of Service: June 04, 2023
-
Patient Diagnosis:
hematuria
urinary retention
hydro
proteus uti/bacteremia
Subjective
-
pt asleep
urine clear off cbi
ucx + for citrobacter and proteus
Objective
-
Vital Signs
Temp Pulse Resp BP Pulse Ox
98.6 F 69 18 102/56 93
06/03/23 23:52 06/03/23 23:52 06/03/23 23:52 06/03/23 23:52 06/03/23 23:52
Intake and Output
06/03/23 06/04/23 06/05/23
06:59 06:59 06:59
Intake Total 1080 / 1080 1080 / 1080
Output Total 3100 / 3100 1200 / 1200
Balance -2020 / -2020 -120 / -120
Intake:
Oral fluids 1080 / 1080 1080 / 1080
Output:
True Urine Output from CBI 3100 / 3100 1200 / 1200
Laboratory Results
06/04/23 05:38
06/04/23 05:38
Physical Exam
-
General - well developed, well nourished, no acute distress
Chest - clear bilaterally
Abdomen - soft, non-tender, positive bowel sounds, no CVAT, no incisional pain or distention
Genitalia - normal
Rectal - normal
Skin - warm & dry with no rash
Neuro - AOx3, no motor deficits
Extremities - no clubbing, no cyanosis, no edema
Incision - clean, dry
Dressing - clean, dry, intact
[2023-06-04] MEDS: PROTONIX 40 MG PO (07:36)
[2023-06-04] MEDS: FLOMAX 0.400000000000000022 MG PO (07:36)
[2023-06-04] MEDS: LASIX 20 MG PO (07:37)
[2023-06-04] MEDS: OXYCONTIN (CONTROLLED RELEASE) 40 MG PO ×2 (07:38→20:01)
[2023-06-04] MEDS: NEURONTIN 300 MG PO ×3 (07:38→23:11)
[2023-06-04] MEDS: COLACE 100 MG PO ×2 (07:38→20:01)
[2023-06-04] MEDS: CLARITIN 10 MG PO (07:38)
[2023-06-04] MEDS: COREG 12.5 MG PO ×2 (07:39→20:01)
[2023-06-04] MEDS: CATAPRES PO (07:40)
[2023-06-04] MEDS: COZAAR PO (07:40)
[2023-06-04] MEDS: DESENEX/MITRAZOL/ZEASORB 1 APPLIC TOPICAL ×2 (07:41→20:02)
[2023-06-04] MEDS: SANTYL OINTMENT 1 APPLIC TOPICAL (07:41)
[2023-06-04] MEDS: DAKIN'S SOLUTION 0.125% 1/4 STRENGTH 473 ML TOPICAL (07:42)
[2023-06-04 07:48] VITALS: BP 95/48
[2023-06-04 08:56] LABS: Glycohemoglobin (HgbA1c) 5.9 % (4.0-5.6)
--- NOTE | 2023-06-04 09:33 | PN.CDI ---
CDI
- -
CDI:
Physician Documentation Request
Admit Date: 06/01/23 17:37
Dear Doctor Lacey,
Patient admitted due to sepsis.
H&P: 'gross hematuria likely secondary to anticoagulation.'
06/02 Hospitalist PN: 'Holding Eliquis in light of acute on chronic anemia, presentation with hematuria.'
Please clarify the relationship between these conditions:
Yes,hematuria is related to/exacerbated by Eliquis.
No, hematuria is not related to/exacerbated by Eliquis.
Unable to determine
Use of terms such as suspected, likely, concern for, or probable (associated with a specific diagnosis that is being evaluated, monitored, or treated as if it exists) are acceptable and can be coded in the inpatient setting, when documented at the
time of discharge.
Thank you,
Trina Ricci RN, BSN
CDI Specialist
Available via [place] text
Please use your independent medical judgment in providing your response.
--- NOTE | 2023-06-04 09:43 | PN.CDI ---
CDI
- -
CDI:
Physician Documentation Request
Admit Date: 06/01/23 17:37
Dear Doctor Lacey,
Patient admitted for sepsis.
3/4 Wound Care Note: 'Sacral stage 2 pressure injuries.'
Physician documentation of the type and location of wounds is required for compliant documentation. Based on the above clinical findings and your assessment, please provide the following in your progress note:
1. Location of the ulcer/wound, including laterality.
2. Type (etiology) of ulcer/wound:
- Pressure (decubitus) ulcer
- Other
- Unable to determine
3. If a pressure ulcer, please also include the stage* of the ulcer:
- Stage 1 - Skin intact, non-blanchable redness
- Stage 2 - Partial thickness loss of dermis, includes intact or open blister
- Stage 3 - Full thickness tissue not including bone, tendon or muscle
- Stage 4 - Full thickness tissue loss, including exposed bone, tendon or muscle
- Unstageable - Full thickness loss in which the base of the ulcer is covered by slough (yellow, jimenez, field, green or brown) and/or eschar (jimenez, brown or black) in the wound bed.
- Unable to determine
Use of terms such as suspected, likely, concern for, or probable (associated with a specific diagnosis that is being evaluated, monitored, or treated as if it exists) are acceptable and can be coded in the inpatient setting, when documented at the
time of discharge.
Thank you,
Trina Ricci RN, BSN
CDI Specialist
Available via [place] text
Please use your independent medical judgment in providing your response.
*Source: National Pressure Ulcer Advisory Panel (NPUAP)
[2023-06-04] MEDS: ROCEPHIN 1000 MG IV (11:02)
[2023-06-04] MEDS: STERILE WATER FOR INJECTION 10 ML IV (11:02)
--- NOTE | 2023-06-04 11:04 | W.PN.HOSP.TC ---
Addendum entered and electronically signed by Isaiah Rahman DO 06/04/23 13:53:
Sacral stage 2 pressure injuries -continue local wound care, offloading.
Yes,hematuria is related to/exacerbated by Eliquis.
Original Note:
Today's Communication/Plan
-
Continue antibiotics
bowel regimen
Assessment / Plan
Assessment / Plan
Gen-AAOx3, NAD, obese, pale
HEENT-NC, AT, anicteric, clear oral mm
Neck-supple
CV-reg, no M, +S1/S2
Lungs-clear B/L
Abd-soft, NT, ND
Ext-no edema
Musculoskeletal-no cyanosis, clubbing
Skin-warm and dry
Neuro-grossly non-focal
Psych-calm, cooperative
SUZANNE on CKD 3b -suspect SUZANNE related to acute retention, hematuria, sepsis. Creatinine improving, 1.4 today. Baseline creatinine 1.0 in April according to PCP. Ozuna catheter remains in place.
Sepsis due to UTI -blood cultures positive for Proteus species. Urine culture shows Citrobacter and Proteus. Infectious disease following. Currently on ceftriaxone. Repeat blood cultures pending.
Acute Hematuria with acute retention--apprec urology--CBI continuing--urine now clear--CT scan with bilateral nephrolithiasis, bladder distended with bilateral pelvicalyceal and ureteral dilation as well as ureteral tortuosity. No evidence for
obstructing ureteral calculus bilaterally. Hematuria exacerbated by anticoagulation with Eliquis. Currently on hold.
Asymptomatic common hepatic duct/common bile duct stones -noted on CT scan. No abdominal pain currently. Bilirubin and ALT normal. Enzymes coming down.
Unstageable right heel pressure injury -x-ray without signs of osteomyelitis. Appreciate podiatry input, continue topical wound care. Offloading.
Right lateral calf skin tear to subcutaneous layer, left lateral calf full-thickness to subcutaneous layer or deeper wound hematoma with surrounding erythema - continue local wound care. Air mattress ordered.
Acute on chronic normocytic anemia -possibly related to hematuria. Hemoglobin improved to 8.1 this morning. Transfusion consent obtained from patient. Will transfuse if hemoglobin drops below 7. I spoke with patient's primary care doctor, .
Jay Reilly, . He mentioned that hemoglobin was 11.7 in April.
Hypokalemia -resolved.
Hypomagnesemia - will replete.
Essential Hypertension--Continue clonidine, imdur, losartan and coreg
Presumed paroxysmal Atrial fibrillation---Holding Eliquis in light of acute on chronic anemia, presentation with hematuria.
Chronic CHF-- unknown type--cont lasix--check echo
Subacute bronchitis -likely viral in nature. Will order Acapella. Admission chest x-ray clear.
DM2 without hyperglycemia -Hold linagliptin?--ISS
Obesity due to excess calories
DNR
DVT Prophylaxis: Eliquis on hold due to hematuria, cannot use SCDs due to b/l leg wounds
PT/OT
Dispo - to return to SNF upon discharge.
Anticipated Discharge: 24 - 48 hours
Subjective/Interval History
-
Date of Service: June 04, 2023
Patient seen and examined. Overall feeling better. Complaining of constipation.
Objective Data
-
Labs:
Laboratory Results
06/04/23
05:38
WBC 6.7
Hgb 8.1 L
Hct 24.3 L
Plt Count 271
Sodium 135
Potassium 3.7
Chloride 101
Carbon Dioxide 31 H
BUN 34 H
Creatinine 1.4 H
Glucose 97
Calcium 7.6 L
Total Bilirubin 0.8
AST 111 H
ALT 27
Alkaline Phosphatase 469 H
Vital Signs:
Vital Signs
Temp Pulse Resp BP Pulse Ox
98.4 F 69 16 95/48 95
06/04/23 07:48 06/04/23 07:48 06/04/23 07:48 06/04/23 07:48 06/04/23 09:25
I&O
06/03/23 06/04/23 06/05/23
06:59 06:59 06:59
Intake Total 1080 / 1080 1080 / 1080
Output Total 3100 / 3100 1200 / 1200
Balance -2020 / -2020 -120 / -120
Review of Systems
-
History Source: Patient
All other systems: Reviewed and negative
--- NOTE | 2023-06-04 11:06 | W.PN.ID1 ---
Date of Service
Date of Service: June 04, 2023
Today's Communication
final day of ceftriaxone
Assessment / Plan
UTI due to Proteus and Citrobacter
Proteus Bacteremia
Fever - resolved
Bronchitis
SUZANNE +/- CKD
DM2 on oral hypoglycemics - controlled
- repeat blood cultures x2 - no growth to date
- continue ceftriaxone day 3 of 3 of rx
- follow clinically
R heel wound with eschar
- Xray no evidence of osteomyelitis
- off loading
- no evidence of local cellulitis at this time
Multiple wounds on the bilateral lower extremities
- local wound care
Chief Complaint
-: UTI
Subjective / Review of Systems
no further fevers
bp mildly hypotensive this am
without leukocytosis, L shift nearly resolved
cr further improved
repeat blood cultures no growth to date
a1c normal
complaining of constipation
Vital Signs / Physical Exam
Vital Signs
Vital Signs
Temp Pulse Resp BP Pulse Ox
98.4 F 69 16 95/48 95
06/04/23 07:48 06/04/23 07:48 06/04/23 07:48 06/04/23 07:48 06/04/23 09:25
Physical Exam
Constitutional: No Acute Distress, Comfortable and Obese
Cardiovascular: Regular Rate and S1/S2; Negative Murmur or Rub
Pulmonary: Clear and Symmetric; Negative Wheezes or Rales
Gastrointestinal: Soft, Non Tender, Non Distended and Normal Bowel Sounds
Genito-Urinary: Negative Suprapubic Tenderness
Skin: Warm and Dry; Negative Rash or Jaundice
Objective Data
Lab Data
Lab Results
06/04/23 05:38
06/04/23 05:38
Estimated Creat Clear 38 ml/min 06/04/23 05:38
Total Bilirubin 0.8 mg/dl (0.2-1.3) 06/04/23 05:38
AST 111 U/L (14-36) H 06/04/23 05:38
ALT 27 U/L (0-35) 06/04/23 05:38
Alkaline Phosphatase 469 U/L (38-126) H 06/04/23 05:38
Most recent labs reviewed.
Micro Results:
06/01/23 19:39 Blood Culture - Preliminary
Blood/Venous Proteus mirabilis
Gram Stain - Final
06/03/23 16:27 Blood Culture - Pending
Blood/Venous
06/03/23 15:47 Blood Culture - Pending
Blood/Venous
06/01/23 11:55 Urine Culture - Final
Urine Citrobacter species
Proteus mirabilis
06/01/23 23:59 MRSA Screen - Final
Nose Staph aureus MRSA
06/01/23 11:55 Influenza Types A & B (COLE) - Final
Nasal Swab Negative for Influenza A & B, NAAT
Negative results must be combined with clinical observations
and patient history.
Nucleic Acid Amplification test (NAAT)performed on the
[employer] platform.
[2023-06-04] MEDS: MIRALAX 17 GRAMS PO (11:33)
--- NOTE | 2023-06-04 12:48 | CM ---
CM met with pt to discuss PT recs - SNF
Pt came from [facility] and would like to return when medically ready
Referral sent in [facility]
Plan - SNF when medically ready - tbd
[2023-06-04 15:00] VITALS: BP 115/51
[2023-06-04] MEDS: COZAAR 50 MG PO (20:01)
[2023-06-04] MEDS: CATAPRES 0.100000000000000006 MG PO (20:02)
[2023-06-04 23:02] VITALS: BP 131/63
[2023-06-04] MEDS: IMDUR (EXTENDED RELEASE) 60 MG PO (23:13)
[2023-06-05 07:33] VITALS: BP 92/52
--- NOTE | 2023-06-05 07:43 | W.PN.URO.CBU ---
Today's Communication / Plan
-
continue UTI treatment
dailey out in am
flomax
Assessment / Plan
-
urinary retention
hydro likely secondary to above (cr at baseline)
hematuria
proteus + citrobacter uti/bactermia
urine clear
hematuria likely secondary to uti/rentention and eliquis
on flomax- would not resume myrbetriq at this time
plan for dailey removal tomorrow for TOV- would accept residuals of 300cc or less
at time of discharge- should go out on flomax but NOT myrbetriq
schedule outpt f/u with dr hernandez
may resume eliquis in next 48hrs if urine remains clear
Diagnosis
-
Date of Service: June 05, 2023
-
Patient Diagnosis:
hematuria
urinary retention
hydro
proteus and citrobacter uti/bacteremia
Subjective
-
pt looks and feels better
urine remains clear
no fevers/nl wbc
cr appears to be at baseline
she tells me she was on myrbetriq as an outpatient
Objective
-
Vital Signs
Temp Pulse Resp BP Pulse Ox
99.1 F 73 17 92/52 94
06/05/23 07:33 06/05/23 07:33 06/05/23 07:33 06/05/23 07:33 06/05/23 07:33
Intake and Output
06/04/23 06/05/23 06/06/23
06:59 06:59 06:59
Intake Total 1080 / 1080 840 / 840
Output Total 1200 / 1200 2000 / 2000
Balance -120 / -120 -1160 / -1160
Intake:
Oral fluids 1080 / 1080 840 / 840
Output:
Urine, Dailey 1999
True Urine Output from CBI 1200 / 1200
Review of Systems
-
Constitutional: Fatigue
Respiratory: No Symptoms
Cardiac: No Symptoms
Abdomen/GI: No Symptoms
: Other (dailey)
Musculoskeletal: Muscle Stiffness
Neurological: Weakness
Physical Exam
-
General - no acute distress
Abdomen - soft, non-tender, obese
Genitalia - dailey in place
[2023-06-05 08:43] VITALS: BP 106/55
[2023-06-05] MEDS: PROTONIX 40 MG PO (08:44)
[2023-06-05] MEDS: CLARITIN 10 MG PO (08:44)
[2023-06-05] MEDS: COZAAR 50 MG PO ×2 (08:44→20:32)
[2023-06-05] MEDS: OXYCONTIN (CONTROLLED RELEASE) 40 MG PO ×2 (08:44→20:32)
[2023-06-05] MEDS: COREG 12.5 MG PO ×2 (08:44→20:32)
[2023-06-05] MEDS: COLACE 100 MG PO ×2 (08:44→20:32)
[2023-06-05] MEDS: FLOMAX 0.400000000000000022 MG PO (08:45)
[2023-06-05] MEDS: CATAPRES 0.100000000000000006 MG PO ×2 (08:45→20:33)
[2023-06-05] MEDS: NEURONTIN 300 MG PO ×3 (08:45→23:51)
[2023-06-05] MEDS: LASIX 20 MG PO (08:45)
[2023-06-05 09:40] LABS: % Basophils 0.3 % (0-2); % Eosinophils 0.4 % (0-6); % Immature Granulocytes 0.5 % (0-0.5); % Lymphocytes 12.2 % (20.5-51.1); % Monocytes 9.2 % (1.7-9.3); % Neutrophils 77.4 % (42.2-75.2); Absolute Lymphocytes 0.9 10^3/uL (1.2-3.4); Absolute Monocytes 0.7 10^3/uL (0.1-0.6); Absolute Neutrophils 5.8 10^3/uL (1.4-6.5); Hemoglobin 7.8 g/dL (12.0-16.0); Mean Corp Hgb Conc. 32.5 g/dL (33.0-37.0); Mean Corpuscular Volume 98.4 fL (81.0-99.0); Mean Platelet Volume 9.5 fL (7.4-10.4); Nucleated Red Blood Cells % 0 %; Platelet Count 313 10^3/uL (130-400); Red Blood Cell Count 2.44 10^6/uL (4.20-5.40); Red Cell Dist. Width 14.6 % (11.5-14.5); White Blood Cell Count 7.5 10^3/uL (4.8-10.8)
[2023-06-05 10:30] VITALS: BP 95/55; BP 97/49; PULSE 69
[2023-06-05 10:54] VITALS: BP 95/55; BP 97/49; PULSE 81
[2023-06-05 10:54] LABS: ALT (SGPT) 23 U/L (0-35); AST (SGOT) 79 U/L (14-36); Albumin 2.2 g/dl (3.5-5.0); Alkaline Phosphatase 399 U/L (38-126); Blood Urea Nitrogen 28 mg/dl (7-17); Calcium 7.6 mg/dl (8.4-10.2); Carbon Dioxide 30 mmol/L (22-30); Chloride 100 mmol/L (98-107); Estimated Creatinine Clearance 38 ml/min; Glucose 106 mg/dl (70-99); Potassium 3.6 mmol/L (3.5-5.1); Sodium 135 mmol/L (135-145); Total Bilirubin 0.6 mg/dl (0.2-1.3); Total Protein 5.7 g/dl (6.3-8.2); eGFR 38.51
[2023-06-05] MEDS: DAKIN'S SOLUTION 0.125% 1/4 STRENGTH 473 ML TOPICAL (11:40)
[2023-06-05] MEDS: MIRALAX PO (11:41)
[2023-06-05] MEDS: DESENEX/MITRAZOL/ZEASORB 1 APPLIC TOPICAL ×2 (11:41→20:34)
[2023-06-05] MEDS: SANTYL OINTMENT 1 APPLIC TOPICAL (11:42)
--- NOTE | 2023-06-05 11:44 | W.PN.HOSP.TC ---
Addendum entered and electronically signed by Isaiah Rahman DO 06/05/23 13:29:
Updated daughter Devora on the phone regarding overall plan of care and prognosis. I mentioned that Ms. Valentine unfortunately may not walk again given her severe lower extremity weakness and requiring assist of 2 to go from the bed to the
chair. She was not able to ambulate with PT.
She may need long-term care such as a senior care, unlikely she will improve to the point where she can go home as family cannot take care of her according to Devora.
Will continue PT and OT nevertheless. Recommend weight loss as a long-term goal to assist with mobility.
Hopefully we can discharge back to SNF prior to weekend.
All questions answered.
Original Note:
Today's Communication/Plan
-
Continue current care
Assessment / Plan
Assessment / Plan
Gen-AAOx3, NAD, obese, pale
HEENT-NC, AT, anicteric, clear oral mm
Neck-supple
CV-reg, no M, +S1/S2
Lungs-clear B/L
Abd-soft, NT, ND
Ext-no edema
Musculoskeletal-no cyanosis, clubbing
Skin-warm and dry
Neuro-grossly non-focal
Psych-calm, cooperative
SUZANNE on CKD 3b -suspect SUZANNE related to acute retention, hematuria, sepsis. Creatinine improving, 1.4 today again. Baseline creatinine 1.0 in April according to PCP. Ozuna catheter remains in place.
Sepsis due to UTI -blood cultures positive for Proteus species. Urine culture shows Citrobacter and Proteus. Infectious disease following. Repeat blood cultures negative. Completed 3 days of ceftriaxone per ID recommendation.
Acute Hematuria with acute retention--apprec urology--CBI continuing--urine now clear--CT scan with bilateral nephrolithiasis, bladder distended with bilateral pelvicalyceal and ureteral dilation as well as ureteral tortuosity. No evidence for
obstructing ureteral calculus bilaterally. Hematuria exacerbated by anticoagulation with Eliquis. Currently on hold.
Urology recommends removing Ozuna catheter on 06/05. Do not discharge on Myrbetriq. Continue Flomax on discharge. Outpatient follow-up with urology.
Asymptomatic common hepatic duct/common bile duct stones -noted on CT scan. No abdominal pain currently. Bilirubin and ALT normal. Enzymes coming down.
Unstageable right heel pressure injury -x-ray without signs of osteomyelitis. Appreciate podiatry input, continue topical wound care. Offloading.
Right lateral calf skin tear to subcutaneous layer, left lateral calf full-thickness to subcutaneous layer or deeper wound hematoma with surrounding erythema - continue local wound care. Air mattress ordered.
Acute on chronic normocytic anemia -possibly related to hematuria. Hemoglobin down to 7.8 this morning, 8.1 yesterday. Transfusion consent obtained from patient. Will transfuse if hemoglobin drops below 7. I spoke with patient's primary care
doctor, Dr. Jay Reilly, . He mentioned that hemoglobin was 11.7 in April.
Hypokalemia -resolved.
Hypomagnesemia - will replete.
Essential Hypertension--Continue clonidine, imdur, losartan and coreg
Presumed paroxysmal Atrial fibrillation---Holding Eliquis in light of acute on chronic anemia, presentation with hematuria. Urology okay with resuming Eliquis in 48 hours if urine remains clear.
Chronic CHF with preserved EF -cont lasix. Echocardiogram shows LVEF 55 to 60%, normal regional wall motion, mild concentric LVH, indeterminate diastolic function.
Subacute bronchitis -likely viral in nature. Acapella. Admission chest x-ray clear.
DM2 without hyperglycemia -Hold linagliptin, ISS
Obesity due to excess calories
DNR
DVT Prophylaxis: Eliquis on hold due to hematuria, cannot use SCDs due to b/l leg wounds
PT/OT
Dispo - to return to SNF upon discharge.
Anticipated Discharge: 24 - 48 hours
Subjective/Interval History
-
Date of Service: June 05, 2023
Patient seen and examined. No new complaints.
Objective Data
-
Labs:
Laboratory Results
06/05/23
07:34
WBC 7.5
Hgb 7.8 L
Hct 24.0 L
Plt Count 313
Sodium 135
Potassium 3.6
Chloride 100
Carbon Dioxide 30
BUN 28 H
Creatinine 1.4 H
Glucose 106 H
Calcium 7.6 L
Total Bilirubin 0.6
AST 79 H
ALT 23
Alkaline Phosphatase 399 H
Vital Signs:
Vital Signs
Temp Pulse Resp BP Pulse Ox
99.1 F 73 17 106/55 94
06/05/23 07:33 06/05/23 08:43 06/05/23 07:33 06/05/23 08:43 06/05/23 07:33
I&O
06/04/23 06/05/23 06/06/23
06:59 06:59 06:59
Intake Total 1080 / 1080 840 / 840
Output Total 1200 / 1200 2000 / 2000
Balance -120 / -120 -1160 / -1160
Review of Systems
-
History Source: Patient
All other systems: Reviewed and negative
--- NOTE | 2023-06-05 12:28 | W.PN.ID1 ---
Date of Service
Date of Service: June 05, 2023
Today's Communication
- completed a course of ceftriaxone
- stable for dc from ID perspective
Assessment / Plan
UTI due to Proteus and Citrobacter
Proteus Bacteremia - cleared
Bronchitis
SUZANNE +/- CKD
DM2 on oral hypoglycemics - controlled
- repeat blood cultures x2 - no growth to date
- completed a course of ceftriaxone
- stable for dc from ID perspective
Chief Complaint
-: UTI
Subjective / Review of Systems
afebrile
bp stable
without leukocytosis, minimal L shift is noted
repeat blood cultures no growth to date
no suprapubic tenderness
Vital Signs / Physical Exam
Vital Signs
Vital Signs
Temp Pulse Resp BP Pulse Ox
99.1 F 73 17 106/55 94
06/05/23 07:33 06/05/23 08:43 06/05/23 07:33 06/05/23 08:43 06/05/23 07:33
Physical Exam
Constitutional: No Acute Distress
Cardiovascular: Regular Rate and S1/S2; Negative Murmur or Rub
Pulmonary: Clear and Symmetric; Negative Wheezes or Rales
Gastrointestinal: Soft, Non Tender, Non Distended and Normal Bowel Sounds
Genito-Urinary: Negative Suprapubic Tenderness
Skin: Warm and Dry; Negative Rash or Jaundice
Objective Data
Lab Data
Lab Results
06/05/23 07:34
06/05/23 07:34
Estimated Creat Clear 38 ml/min 06/05/23 07:34
Total Bilirubin 0.6 mg/dl (0.2-1.3) 06/05/23 07:34
AST 79 U/L (14-36) H 06/05/23 07:34
ALT 23 U/L (0-35) 06/05/23 07:34
Alkaline Phosphatase 399 U/L (38-126) H 06/05/23 07:34
Most recent labs reviewed.
Micro Results:
06/03/23 16:27 Blood Culture - Preliminary
Blood/Venous No Growth in 24 hours- Final report to follow
06/03/23 15:47 Blood Culture - Preliminary
Blood/Venous No Growth in 24 hours- Final report to follow
06/01/23 19:39 Blood Culture - Final
Blood/Venous Proteus mirabilis
Gram Stain - Final
06/01/23 11:55 Urine Culture - Final
Urine Citrobacter species
Proteus mirabilis
06/01/23 23:59 MRSA Screen - Final
Nose Staph aureus MRSA
06/01/23 11:55 Influenza Types A & B (COLE) - Final
Nasal Swab Negative for Influenza A & B, NAAT
Negative results must be combined with clinical observations
and patient history.
Nucleic Acid Amplification test (NAAT)performed on the
[employer] platform.
--- NOTE | 2023-06-05 15:29 | CM ---
Chart reviewed
Pt accepted at [facility] when medically ready - will not need auth
CM will continue to follow for d/c needs
Plan - when medically ready - transfer to [facility] - no auth
[2023-06-05 15:32] VITALS: BP 119/54
[2023-06-05 23:00] VITALS: BP 113/58
--- NOTE | 2023-06-05 23:44 | PTCARENOTE ---
Pt pox 88-90% on RA. 2L placed on pt now 96%
[2023-06-05] MEDS: IMDUR (EXTENDED RELEASE) 60 MG PO (23:51)
[2023-06-06 06:07] LABS: % Basophils 0.2 % (0-2); % Eosinophils 0.2 % (0-6); % Immature Granulocytes 0.6 % (0-0.5); % Lymphocytes 12.1 % (20.5-51.1); % Monocytes 10.1 % (1.7-9.3); % Neutrophils 76.8 % (42.2-75.2); Absolute Immature Granulocytes 0.1 10^3/uL (0-0.05); Absolute Lymphocytes 1.1 10^3/uL (1.2-3.4); Absolute Monocytes 0.9 10^3/uL (0.1-0.6); Absolute Neutrophils 6.7 10^3/uL (1.4-6.5); Hematocrit 24.4 % (37.0-47.0); Hemoglobin 8.1 g/dL (12.0-16.0); Mean Corp Hgb Conc. 33.2 g/dL (33.0-37.0); Mean Corpuscular Hgb 32.7 pg (27.0-31.0); Mean Corpuscular Volume 98.4 fL (81.0-99.0); Mean Platelet Volume 9.2 fL (7.4-10.4); Nucleated Red Blood Cells % 0 %; Platelet Count 320 10^3/uL (130-400); Red Blood Cell Count 2.48 10^6/uL (4.20-5.40); Red Cell Dist. Width 14.5 % (11.5-14.5); White Blood Cell Count 8.7 10^3/uL (4.8-10.8)
[2023-06-06 07:32] LABS: ALT (SGPT) 24 U/L (0-35); AST (SGOT) 78 U/L (14-36); Albumin 2.3 g/dl (3.5-5.0); Alkaline Phosphatase 304 U/L (38-126); Blood Urea Nitrogen 31 mg/dl (7-17); Calcium 7.9 mg/dl (8.4-10.2); Carbon Dioxide 33 mmol/L (22-30); Chloride 96 mmol/L (98-107); Estimated Creatinine Clearance 35 ml/min; Glucose 122 mg/dl (70-99); Potassium 3.8 mmol/L (3.5-5.1); Sodium 136 mmol/L (135-145); Total Bilirubin 0.8 mg/dl (0.2-1.3); Total Protein 5.9 g/dl (6.3-8.2); eGFR 35.45
[2023-06-06 07:51] VITALS: BP 106/55
[2023-06-06] MEDS: FLOMAX 0.400000000000000022 MG PO (08:36)
[2023-06-06] MEDS: PROTONIX 40 MG PO (08:36)
[2023-06-06] MEDS: COLACE 100 MG PO (08:36)
[2023-06-06] MEDS: CLARITIN 10 MG PO (08:36)
[2023-06-06] MEDS: NEURONTIN 300 MG PO ×2 (08:37→16:05)
[2023-06-06] MEDS: MIRALAX PO (08:37)
[2023-06-06] MEDS: OXYCONTIN (CONTROLLED RELEASE) 40 MG PO (08:37)
[2023-06-06] MEDS: LASIX 20 MG PO (08:39)
[2023-06-06] MEDS: COZAAR 50 MG PO (08:39)
[2023-06-06] MEDS: COREG 12.5 MG PO (08:39)
[2023-06-06] MEDS: CATAPRES 0.100000000000000006 MG PO (08:39)
[2023-06-06] MEDS: DAKIN'S SOLUTION 0.125% 1/4 STRENGTH TOPICAL (08:40)
[2023-06-06] MEDS: DESENEX/MITRAZOL/ZEASORB 1 APPLIC TOPICAL (08:40)
[2023-06-06] MEDS: SANTYL OINTMENT TOPICAL (08:40)
--- NOTE | 2023-06-06 09:44 | W.PN.URO.CBU ---
Today's Communication / Plan
-
Ozuna out
Cleared for discharge back to SNF
Discussed with Hospitalist
Assessment / Plan
-
urinary retention
hydro likely secondary to above (cr at baseline)
hematuria
proteus + citrobacter uti/bactermia
urine clear
hematuria likely secondary to uti/rentention and eliquis
on flomax- would not resume myrbetriq at this time
Ozuna removed today for TOV- would accept residuals of 300cc or less
at time of discharge- should go out on flomax but NOT myrbetriq
schedule outpt f/u with dr hernandez
may resume eliquis in next 24hrs if urine remains clear
Diagnosis
-
Date of Service: June 06, 2023
-
Patient Diagnosis:
Post Op Day:
Patient Diagnosis:
hematuria
urinary retention
hydro
proteus and citrobacter uti/bacteremia
---
Ozuna removed 06/06/23
Subjective
-
No complaints other than shoulder stiffness
Objective
-
Vital Signs
Temp Pulse Resp BP Pulse Ox
98.6 F 76 17 121/57 94
06/06/23 07:51 06/06/23 08:39 06/06/23 07:51 06/06/23 08:39 06/06/23 07:51
Intake and Output
06/05/23 06/06/23 06/07/23
06:59 06:59 06:59
Intake Total 840 / 840 1200 / 1200
Output Total 1999 1400 / 1400
Balance -1160 / -1160 -200 / -200
Intake:
Oral fluids 840 / 840 1200 / 1200
Output:
Urine, Ozuna 1999 1400 / 1400
Other:
Number of approximated SMALL 2
amounts of urine
Laboratory Results
06/06/23 05:47
06/06/23 05:47
Review of Systems
-
Constitutional: Fatigue
Cardiac: No Symptoms
Abdomen/GI: No Symptoms
: No Symptoms
Physical Exam
-
General - no acute distress
Abdomen - soft, non-tender
Skin - warm & dry with no rash
--- NOTE | 2023-06-06 09:51 | W.PN.HOSP.TC ---
Addendum entered and electronically signed by Isaiah Rahman DO 06/06/23 12:59:
Acute blood loss anemia on chronic anemia
Original Note:
Today's Communication/Plan
-
Voiding trial
Discharge planning
Assessment / Plan
Assessment / Plan
Gen-AAOx3, NAD, obese, pale
HEENT-NC, AT, anicteric, clear oral mm
Neck-supple
CV-reg, no M, +S1/S2
Lungs-clear B/L
Abd-soft, NT, ND
Ext-no edema
Musculoskeletal-no cyanosis, clubbing
Skin-warm and dry
Neuro-grossly non-focal
Psych-calm, cooperative
SUZANNE on CKD 3b -suspect SUZANNE related to acute retention, hematuria, sepsis. Creatinine stable, 1.5 today. Baseline creatinine 1.0 in April according to PCP.
Sepsis due to UTI -blood cultures positive for Proteus species. Urine culture shows Citrobacter and Proteus. Infectious disease following. Repeat blood cultures negative. Completed 3 days of ceftriaxone per ID recommendation.
Acute Hematuria with acute retention -CT scan with bilateral nephrolithiasis, bladder distended with bilateral pelvicalyceal and ureteral dilation as well as ureteral tortuosity. No evidence for obstructing ureteral calculus bilaterally. Hematuria
exacerbated by anticoagulation with Eliquis. Currently on hold. CBI completed.
Ozuna catheter came out this morning, awaiting voiding trial. Do not discharge on Myrbetriq. Continue Flomax on discharge. Outpatient follow-up with urology. Discussed with Dr. Price. As long as bladder scan shows less than 300 cc of urine, no
need to reinsert Ozuna catheter.
Asymptomatic common hepatic duct/common bile duct stones -noted on CT scan. No abdominal pain currently. Bilirubin and ALT normal. Enzymes coming down.
Unstageable right heel pressure injury -x-ray without signs of osteomyelitis. Appreciate podiatry input, continue topical wound care. Offloading.
Right lateral calf skin tear to subcutaneous layer, left lateral calf full-thickness to subcutaneous layer or deeper wound hematoma with surrounding erythema - continue local wound care. Air mattress ordered.
Acute on chronic normocytic anemia -possibly related to hematuria. Hemoglobin stable, 8.1 today. Transfusion consent obtained from patient. Will transfuse if hemoglobin drops below 7. I spoke with patient's primary care doctor, Dr. Jay Reilly,
[phone]. He mentioned that hemoglobin was 11.7 in April.
Bilateral shoulder arthritis -limited range of motion on exam. Continue PT, outpatient follow-up.
Hypokalemia -resolved.
Hypomagnesemia - will replete.
Essential Hypertension--Continue clonidine, imdur, losartan and coreg
Presumed paroxysmal Atrial fibrillation -urology recommends resuming Eliquis on 06/06.
Chronic CHF with preserved EF -cont lasix. Echocardiogram shows LVEF 55 to 60%, normal regional wall motion, mild concentric LVH, indeterminate diastolic function.
Subacute bronchitis -likely viral in nature. Acapella. Admission chest x-ray clear.
DM2 without hyperglycemia -Hold linagliptin, ISS
Obesity due to excess calories
DNR
DVT Prophylaxis: Eliquis on hold due to hematuria, cannot use SCDs due to b/l leg wounds
PT/OT
Dispo -stable for discharge to SNF. Discussed with urology. Case management aware.
Anticipated Discharge: Today
Subjective/Interval History
-
Date of Service: June 06, 2023
Patient seen and examined. Complaining of bilateral shoulder pain with limited range of motion.
Objective Data
-
Labs:
Laboratory Results
06/06/23
05:47
WBC 8.7
Hgb 8.1 L
Hct 24.4 L
Plt Count 320
Sodium 136
Potassium 3.8
Chloride 96 L
Carbon Dioxide 33 H
BUN 31 H
Creatinine 1.5 H
Glucose 122 H
Calcium 7.9 L
Total Bilirubin 0.8
AST 78 H
ALT 24
Alkaline Phosphatase 304 H
Vital Signs:
Vital Signs
Temp Pulse Resp BP Pulse Ox
98.6 F 76 17 121/57 94
06/06/23 07:51 06/06/23 08:39 06/06/23 07:51 06/06/23 08:39 06/06/23 07:51
I&O
06/05/23 06/06/23 06/07/23
06:59 06:59 06:59
Intake Total 840 / 840 1200 / 1200
Output Total 2000 / 2000 1400 / 1400
Balance -1160 / -1160 -200 / -200
Review of Systems
-
History Source: Patient
All other systems: Reviewed and negative
[2023-06-06 10:22] LABS: Magnesium 1.8 mg/dl (1.6-2.3)
--- NOTE | 2023-06-06 11:11 | CM ---
Addendum entered by Arlyn Moore 06/06/23 13:26:
Transport at 1730 to return to [facility]
Notified pts daughter and facility
Plan - d/c to [facility]
Report - [phone]
Fax -
Addendum entered by Arlyn Moore 06/06/23 13:03:
Received call from [facility] - able to accept pt today
Spoke with pts daughter Roseline
Aware Pt will transferred to [facility] today
Discussed IMM
Original Note:
Notified by Dr Rahman pt will be ready for SNF today
Pt aware of plan
Pt accepted at [facility]
Called [facility] Liaison for [facility] - made aware - he will return call regarding bed availability
Plan - d/c to [facility]
Report - [phone]
Fax - [phone]
--- NOTE | 2023-06-06 11:33 | W.DS.TRANS ---
DC Summary - Balance Wheel Motion Inspector
-
Discharge Instructions:
Discharge Diagnosis/Procedures Sepsis, UTI, acute kidney injury, anemia,
pressure wounds
Diet 2 Gram Sodium,Low Cholesterol
Activity With assistance,As tolerated
Driving Restrictions No driving
Blood Work CBC, BMP in 1 week
Instructions:
Stand-Alone Forms:
Changes to Home Medications: No
Discharge Medications:
DC Medications w/original date entered in [employer]
acetaminophen 325 mg tablet (Tylenol) 650 mg PO Q6HPRN PRN mild pain 06/01/23
bisacodyl 10 mg rectal suppository (Dulcolax (bisacodyl)) 10 mg [place] DAILY PRN if no bm aftr mom 06/01/23
carvedilol 12.5 mg tablet (Coreg) 12.5 mg PO BID Blood Pressure 06/01/23
clonidine HCl 0.1 mg tablet 0.1 mg PO BID Blood Pressure 06/01/23
dexlansoprazole 60 mg capsule,biphase delayed release (Dexilant) 60 mg PO DAILY gerd 06/01/23
docusate sodium 100 mg capsule (Colace) 100 mg PO BID Constipation 06/01/23
furosemide 20 mg tablet (Lasix) 20 mg PO DAILY Fluid Retention/Swelling 06/01/23
gabapentin 300 mg capsule 300 mg PO TID neuropathy 06/01/23
isosorbide mononitrate 60 mg tablet,extended release 24 hr 60 mg PO DAILY Blood Pressure 06/01/23
linagliptin 5 mg tablet 5 mg PO DAILY Diabetes 06/01/23
loratadine 10 mg tablet (Claritin) 10 mg PO DAILY Allergies 06/01/23
losartan 50 mg tablet 50 mg PO BID Blood Pressure 06/01/23
magnesium hydroxide 400 mg/5 mL oral suspension (Milk of Magnesia) 2,400 mg PO [id number] PRN if no bm by 3rd day 06/01/23
sennosides 8.6 mg tablet (senna) 8.6 mg PO BID Constipation 06/01/23
sodium phosphates 19 gram-7 gram/118 mL enema (Fleet Enema) 118 ml [place] DAILYPRN PRN if no bm aftr dulcolax 06/01/23
apixaban 5 mg tablet (Eliquis) 5 mg PO BID #60 tabs 06/06/23
collagenase clostridium histo. 250 unit/gram topical ointment (Santyl) 1 applic topical DAILY #0 grams 06/06/23
miconazole nitrate 2 % topical powder (Miconazorb AF) 1 applic topical BID #0 grams 06/06/23
oxycodone 40 mg tablet,crush resistant,extended release 12 hr (OxyContin) 40 mg PO BID Pain #6 tabs 06/06/23
polyethylene glycol 3350 17 gram oral powder packet (HealthyLax) 17 g PO DAILY #0 ea 06/06/23
sodium hypochlorite 0.125 % solution (Dakin's Solution) 1 applic topical DAILY #473 mL 06/06/23
tamsulosin 0.4 mg capsule 0.4 mg PO DAILY #0 caps 06/06/23
Home Medication Changes
Pending Results: No
[2023-06-06] MEDS: TYLENOL 650 MG PO (11:39)
[2023-06-06] MEDS: ROBITUSSIN 100 MG PO (11:43)
--- NOTE | 2023-06-06 11:55 | PN.CDI ---
CDI
- -
CDI:
Physician Documentation Request
Admit Date: 06/01/23 17:37
Dear Doctor Lacey,
Patient admitted for sepsis.
06/05 Hospitalist PN: 'Acute on chronic normocytic anemia -possibly related to hematuria...He mentioned that hemoglobin was 11.7 in April.'
Laboratory Tests
06/01/23 06/03/23 06/05/23
11:55 06:02 07:34
Hgb 9.5 L 7.6 L 7.8 L
Based on the above, could you clarify in the progress notes, the appropriate diagnosis, if significant, that supports the above abnormalities and additional evaluation, monitoring and/or treatment rendered:
Acute blood loss anemia on chronic anemia
Acute on chronic anemia
Other
Use of terms such as suspected, likely, concern for, or probable (associated with a specific diagnosis that is being evaluated, monitored, or treated as if it exists) are acceptable and can be coded in the inpatient setting, when documented at the
time of discharge.
Thank you,
Trina Ricci RN, BSN
CDI Specialist
Available via [place] text
Please use your independent medical judgment in providing your response.
--- NOTE | 2023-06-06 13:25 | WOUNDNOTE ---
L CALF (POSTERIOR LATERAL)
--- NOTE | 2023-06-06 13:27 | WOUNDNOTE ---
WO RN Note: Noticed scattered purple ecchymotic skin around L lateral calf wound, no erythema, wound slightly mold cleaner. Suspect ecchymosis is r/o Eliquis and pressure. She cannot lift her legs in bed. Updated Dr. Jenkins via tiger text including L
lateral calf wound photo asking if she still wants [address] lightly wrapped. Dr. Jenkins responded she wants to continue the Pradip wrap but not too loosely to cause skin irritation. Updated RN Doug who is providing wound care. R heel necrosis
softening. R lateral calf skin tear about the same. Added air chair cushion on top of pillow under calves. Foot Waffle boots given.
[2023-06-06] MEDS: SANTYL OINTMENT 1 APPLIC TOPICAL (13:37)
--- NOTE | 2023-06-06 14:10 | WOUNDNOTE ---
[facility] RN Note: Briefly visited patient around 1330 while CELY Camacho was providing LLE wound care. Noticed scattered purple ecchymotic skin around L lateral calf wound, no erythema, wound slightly stock sheets cleaner inspector. Suspect ecchymosis is r/o Eliquis and pressure.
LLE edema and periwound erythema appear resolved. She cannot lift her legs in bed. Updated Dr. Jenkins via tiger text including L lateral calf wound photo asking if she still wants 6 inch Pradip lightly wrapped. Also updated Dr. Rahman via separate
tiger text. Dr. Jenkins responded she wants to continue the Pradip wrap but not too loosely to cause skin irritation. Updated CELY Camacho who is providing wound care. R heel necrosis softening. R lateral calf skin tear about the same. Added air chair
cushion on top of pillow under calves. Foot Waffle boots given.
--- NOTE | 2023-06-06 15:00 | WOUNDNOTE ---
Confirmed with Dr. Gregory SCHUSTER Pradip can be remove q hs. Discharge instructions updated. t/c Spoke with customer service clerk Jessica who will reprint discharge instructions for SNF transfer.
--- NOTE | 2023-06-06 15:02 | WOUNDNOTE ---
Confirmed LLE Pradip can be remove q hs. Discharge instructions updated. t/c Spoke with title clerk automobile Jessica who will reprint discharge instructions for SNF transfer.
--- NOTE | 2023-06-06 15:24 | W.PN.ID1 ---
Date of Service
Date of Service: June 06, 2023
Today's Communication
- completed a course of ceftriaxone - stable for dc from ID perspective
Assessment / Plan
UTI due to Proteus and Citrobacter
Proteus Bacteremia - cleared
Bronchitis
SUZANNE +/- CKD
DM2 on oral hypoglycemics - controlled
- repeat blood cultures x2 - no growth to date
- completed a course of ceftriaxone - stable for dc from ID perspective
Chief Complaint
-: UTI
Subjective / Review of Systems
afebrile
bp stable
without leukocytosis, cr stable
blood cultures no growth to date
no new complaints
Vital Signs / Physical Exam
Vital Signs
Vital Signs
Temp Pulse Resp BP Pulse Ox
98.6 F 76 17 121/57 92
06/06/23 07:51 06/06/23 08:39 06/06/23 07:51 06/06/23 08:39 06/06/23 10:17
Physical Exam
Constitutional: No Acute Distress
Cardiovascular: Regular Rate and S1/S2; Negative Murmur or Rub
Pulmonary: Clear and Symmetric; Negative Wheezes or Rales
Gastrointestinal: Soft, Non Tender, Non Distended and Normal Bowel Sounds
Genito-Urinary: Negative Suprapubic Tenderness
Skin: Warm and Dry; Negative Rash or Jaundice
Objective Data
Lab Data
Lab Results
06/06/23 05:47
06/06/23 05:47
Estimated Creat Clear 35 ml/min 06/06/23 05:47
Total Bilirubin 0.8 mg/dl (0.2-1.3) 06/06/23 05:47
AST 78 U/L (14-36) H 06/06/23 05:47
ALT 24 U/L (0-35) 06/06/23 05:47
Alkaline Phosphatase 304 U/L (38-126) H 06/06/23 05:47
Most recent labs reviewed.
Micro Results:
06/03/23 16:27 Blood Culture - Preliminary
Blood/Venous No Growth in 48 hours- Final report to follow
06/03/23 15:47 Blood Culture - Preliminary
Blood/Venous No Growth in 48 hours- Final report to follow
06/01/23 19:39 Blood Culture - Final
Blood/Venous Proteus mirabilis
Gram Stain - Final
06/01/23 11:55 Urine Culture - Final
Urine Citrobacter species
Proteus mirabilis
06/01/23 23:59 MRSA Screen - Final
Nose Staph aureus MRSA
06/01/23 11:55 Influenza Types A & B (COLE) - Final
Nasal Swab Negative for Influenza A & B, NAAT
Negative results must be combined with clinical observations
and patient history.
Nucleic Acid Amplification test (NAAT)performed on the
[employer] platform.
[2023-06-06 15:47] VITALS: BP 105/55
== END 2023-06-06 18:45 | DRG 689 ==
LOC: 3 WEST ACU 17:37
PROVIDERS: Internal Medicine; Nurse Practitioner; ADMITTING PHYSICIAN Internal Medicine; ATTENDING PHYSICIAN Hospitalist; CONSULT PHYSICIAN Podiatrist Foot & Ankle Surgery; CONSULT PHYSICIAN Specialist; CONSULT PHYSICIAN Student in an Organized Health Care Education/Training Program; EMERGENCY PHYSICIAN Emergency Medicine; FAMILY PHYSICIAN Internal Medicine
DX: N39.0 Urinary tract infection, site not specified (principal); A41.9 Sepsis, unspecified organism; I13.0 Hypertensive heart and chronic kidney disease with heart failure and stage 1 through stage 4 chronic kidney disease, or unspecified chronic kidney disease; N17.9 Acute kidney failure, unspecified; D62 Acute posthemorrhagic anemia; N13.6 Pyonephrosis; Z11.52 Encounter for screening for COVID-19; N20.0 Calculus of kidney; I48.91 Unspecified atrial fibrillation; I50.9 Heart failure, unspecified; N18.32 Chronic kidney disease, stage 3b; E11.22 Type 2 diabetes mellitus with diabetic chronic kidney disease; Z66 Do not resuscitate; Z79.01 Long term (current) use of anticoagulants; L89.152 Pressure ulcer of sacral region, stage 2; K80.20 Calculus of gallbladder without cholecystitis without obstruction; L89.610 Pressure ulcer of right heel, unstageable; S81.819A Laceration without foreign body, unspecified lower leg, initial encounter; B96.4 Proteus (mirabilis) (morganii) as the cause of diseases classified elsewhere; E66.01 Morbid (severe) obesity due to excess calories; Z68.37 Body mass index [BMI] 37.0-37.9, adult
CPT/HCPCS: 51702; 51798; 71046; 73650; 74176; 80053; 81003; 81015; 83036; 83735; 85014; 85018; 85025; 85027; 87040; 87070; 87077; 87086; 87147; 87149; 87186; 87205; 87502; 87811; 93005; 93306; 93970; 97163; 97167; 97530; 97535; 99285; Q9950

== ENCOUNTER 2023-12-19 10:54 | Inpatient (IN) | payer MEDICARE, OTHER, SELFPAY ==
[2023-12-19] VITALS (8 sets, daily range): BP systolic 112–129; BP diastolic 53–107; BMI 34.5; BMI 33.5
[2023-12-19 09:21] LABS: % Basophils 0.7 % (0-2); % Eosinophils 0.3 % (0-6); % Immature Granulocytes 0.2 % (0-0.5); % Lymphocytes 18.8 % (20.5-51.1); % Monocytes 5.2 % (1.7-9.3); % Neutrophils 74.8 % (42.2-75.2); Absolute Lymphocytes 1.2 10^3/uL (1.2-3.4); Absolute Monocytes 0.3 10^3/uL (0.1-0.6); Absolute Neutrophils 4.6 10^3/uL (1.4-6.5); Hematocrit 29.9 % (37.0-47.0); Hemoglobin 9.9 g/dL (12.0-16.0); Mean Corp Hgb Conc. 33.1 g/dL (33.0-37.0); Mean Corpuscular Hgb 33.1 pg (27.0-31.0); Mean Platelet Volume 9.6 fL (7.4-10.4); Nucleated Red Blood Cells % 0 %; Platelet Count 318 10^3/uL (130-400); Red Blood Cell Count 2.99 10^6/uL (4.20-5.40); Red Cell Dist. Width 15.7 % (11.5-14.5); White Blood Cell Count 6.1 10^3/uL (4.8-10.8)
--- NOTE | 2023-12-19 09:24 | PTCARENOTE ---
Pt reports that unsure if source of bleeding is rectal or vaginal. Scan blood in attends with unknown source.
[2023-12-19 09:25] LABS: INR 1.35; PT 16.8 Sec (11.4-14.6)
[2023-12-19 09:26] LABS: APTT 33.3 Sec (23.4-35.0)
[2023-12-19 09:27] LABS: ALT (SGPT) 13 U/L (0-35); AST (SGOT) 32 U/L (14-36); Albumin 2.2 g/dl (3.5-5.0); Alkaline Phosphatase 143 U/L (38-126); Blood Urea Nitrogen 23 mg/dl (7-17); Carbon Dioxide 22 mmol/L (22-30); Chloride 108 mmol/L (98-107); Estimated Creatinine Clearance 47 ml/min; Glucose 110 mg/dl (70-99); Potassium 4.2 mmol/L (3.5-5.1); Sodium 141 mmol/L (135-145); Total Protein 6.3 g/dl (6.3-8.2); eGFR 57.66
--- NOTE | 2023-12-19 09:56 | ED.GENMED ---
History of Present Illness
General
Chief Complaint: Rectal Bleeding
Source: patient, records, ambulance crew and [facility]
Exam Limitations: none
Time Seen by Provider: 12/19/23 08:51
Nursing documentation reviewed up to this point in time: agreed with
History of Present Illness
History of Present Illness:
78-year-old female with a past medical history of hypertension, hyperlipidemia, CAD status post stent, A-fib on Eliquis who presents to the emergency room from [facility] where she is long-term resident presents to the emergency
room for evaluation of rectal bleeding. Staff apparently noted some bright red blood mixed with stool 3 days ago and bleeding increased today now passing large volume of blood with clots. Blood darker red today. Sent to the ER for evaluation.
Patient apparently is on Eliquis she says that they discontinued it 3 days ago when bleeding for started. She denies any chest pain, shortness of breath, lightheadedness/dizziness. She denies any abdominal pain. During triage screening she did
apparently report some suicidality�she says that she has had suicidal thoughts/passive wish in the past and feels very depressed recently due to her chronic deconditioning and medical issues but does not have a plan.
Past History
Past History
ED Past Medical History: Arrthythmia (Atrial fibrillation), CAD, HTN, NIDDM and Hyperthyroidism
Social History
Tobacco: Non-smoker
Drug: None
Review of Systems
Review of Systems
All Other Systems: ROS reviewed and negative except as documented in HPI and ROS
Constitutional: Denies fever
Respiratory: Denies cough or trouble breathing
Cardiac: Denies chest pain, palpitations or syncope
ABD/GI: Reports bloody stools and black stools; Denies abdominal pain, nausea, vomiting or diarrhea
: Denies flank pain
Musculoskeletal: Denies neck pain or back pain
Neurological: Denies dizzy or headache
Phy Exam
Physical Exam
Physical Exam:
General: Awake, alert, oriented x 3
Head: Normocephalic, atraumatic
Eyes: Conjunctiva normal, sclera anicteric
Throat: Airway intact, handling secretions
Neck: Trachea midline, supple without meningismus
Lungs: Clear to auscultation bilaterally, no wheezing, rales, rhonchi
Heart: Regular rate and irregular rhythm, no murmurs, gallops, or rubs�triage tachycardia resolved heart rate in the 90s on my assessment
Abd: Soft, non distended, nontender
Rectal: Dark red to black stool�confirmed Hemoccult strongly positive
Neuro: No gross deficits
Skin: no rash
Extremities: Warm well-perfused
Scores
Heart Failure Risk
Heart Failure Risk Score: Not Applicable
Heart Score for Chest Pain Patients
STEMI patient?: Not applicable
Withdrawal Assessment of Alcohol
Withdrawal Assessment Completed?: Not applicable
Course
Orders/Labs/Results
Orders:
Orders
12/19/23 09:04
Type+Screen Urgent
Complete Blood Count/With Diff Urgent
Comprehensive Metabolic Panel Urgent
PTT Urgent
Prothrombin Time Urgent
12/19/23 09:31
ABO2 Urgent
BBK Wristband Number:
Associate notified that ABO2 has been ordered: [id number]
Date: 12/19/23
Time: 09:25
Fire [employer] Battalion Chief ID: [id number]
12/19/23 09:52
Pantoprazole [Protonix IV] 80 mg IV NOW STA
12/19/23 09:55
PSYCHIATRY CONSULT Routine
Consulting Provider: Doyle Gallegos
Was physician already notified: Yes
Abnormal Lab Results
12/19/23
09:04
RBC 2.99 L 10^6/uL
(4.20-5.40)
Hgb 9.9 L g/dL
(12.0-16.0)
Hct 29.9 L %
(37.0-47.0)
MCV 100.0 H fL
(81.0-99.0)
MCH 33.1 H pg
(27.0-31.0)
RDW 15.7 H %
(11.5-14.5)
Lymphocytes % 18.8 L %
(20.5-51.1)
PT 16.8 H Sec
(11.4-14.6)
Chloride 108 H mmol/L
(98-107)
BUN 23 H mg/dl
(7-17)
Glucose 110 H mg/dl
(70-99)
Calcium 8.0 L mg/dl
(8.4-10.2)
Alkaline Phosphatase 143 H U/L
(38-126)
Albumin 2.2 L g/dl
(3.5-5.0)
12/19/23 09:04
12/19/23 09:04
Vital Signs
Initial and Last Documented VS:
Initial Vital Signs
BP
129/107
12/19/23 08:52
Last Documented Vital Signs
Temp Pulse Resp BP Pulse Ox
36.3 C 87 15 125/87 98
12/19/23 08:55 12/19/23 09:04 12/19/23 09:04 12/19/23 09:04 12/19/23 09:09
MDM/Problems Addressed
Differential Diagnosis Includes:
Acute GI bleed�bleeding ulcer, bleeding diverticulum, AVM, etc
MDM/Problems Addressed:
78-year-old female presents to the emergency for rectal bleeding�apparently ate some bright red blood a few days ago progressed to large volume of dark red blood clots today. She is on Eliquis apparently this was stopped 3 days ago. Tachycardic in
triage, heart rate 90s on my assessment, normotensive. Physical exam as above. Will place large-bore IV send labs including a CBC and a CMP, coags, type and screen. Check an EKG. Monitor closely reassess after the above. Patient did note
suicidality as mentioned above�in my judgment she is not actively suicidal but has been very depressed recently and has passive wish. Case discussed with psychiatry to consult.
Labs reviewed: CBC shows anemia to 9.9�baseline is between 7 and 8 so she is actually slightly higher than usual. CMP shows slightly elevated BUN. Vitals have been stable. According to patient anticoagulation was stopped 3 days ago and therefore
no indication for emergent reversal. I think she should be monitored with serial hemoglobins. Given that her stool was dark red to black on exam today will treat with a PPI. Will admit for continued monitoring and treatment. Case discussed with
hospitalist. Psychiatry consulted as above.
Chronic conditions affecting care:
Atrial fibrillation on Eliquis which complicates rectal bleeding
*Pulse Oximetry
Patient hypoxic: no
*Critical Care Note
Total Time (30-74mins, 75-104mins- exclusive of procedures): Not Applicable
Data Reviewed
Review of Other/Old Records Reveals: Labs and Records
Source: patient, records, ambulance crew and [facility]
Patient Management
Discussion with other providers: Hospitalist (Discussed with hospitalist) and Body Shop Technician (Discussed with psychiatry)
Escalation/DeEscalation of care consider admission/obs:
Admission indicated
ED Attending Note
-
Portions of this chart may have been created with voice recognition software.� Occasional wrong word or��sound alike� substitutions may have occurred due to the inherent limitations of voice recognition software.
Discharge Plan
Departure
Patient Disposition: Admit
Date of Disposition: 12/19/23
Time of Disposition: 09:58
Admit to doctor: Kit
Presentation/result/management discussed w/ accepting MD/DO: Hospitalist
Discharge Problem:
Rectal bleeding, Suicidal ideation
Prescriptions:
No Action
sennosides [senna] 8.6 mg Tablet
8.6 mg PO BID
acetaminophen [Tylenol] 325 mg Tablet
650 mg PO Q6HPRN PRN (Reason: mild pain)
carvedilol [Coreg] 12.5 mg Tablet
6.25 mg PO BID
magnesium hydroxide [Milk of Magnesia] 400 mg/5 mL Suspension
2,400 mg PO [id number] PRN (Reason: if no bm by 3rd day)
bisacodyl [Dulcolax (bisacodyl)] 10 mg Suppository
10 mg NE DAILYPRN PRN (Reason: if no bm aftr mom)
Fleet Enema 19-7 gram/118 mL Enema
118 ml NE DAILYPRN PRN (Reason: if no bm aftr dulcolax)
docusate sodium [Colace] 100 mg Capsule
100 mg PO BID
furosemide [Lasix] 20 mg Tablet
20 mg PO DAILY
Eliquis 5 mg Tablet
5 mg PO BID Qty: 60 0RF
Rx Instructions:
on hold starting 12/17/23
lidocaine 4 % Adhesive Patch,Medicated
1 patch TOPICAL DAILY
trazodone 50 mg Tablet
25 mg PO HS
simvastatin [Zocor] 10 mg Tablet
10 mg PO HS
Theragen Tablet
1 tab PO DAILY
pantoprazole [Protonix] 40 mg Tablet,Delayed Release (Dr/Ec)
40 mg PO BID
Lac-Hydrin Five 5 % Lotion
1 applic TOPICAL BID
simethicone [Gas-X] 80 mg Tablet,Chewable
80 mg PO [id number] PRN (Reason: gas pains)
Saccharomyces boulardii [Florastor] 250 mg Capsule
250 mg PO BID
diclofenac sodium [Voltaren] 1 % Gel
0 g TOPICAL TID
Biofreeze (menthol) 4 % Gel
1 applic TOPICAL HS
potassium chloride 20 mEq Tablet Extended Release
20 meq PO BID
oxycodone [OxyContin] 40 mg Tablet,Oral Only,Ext.Rel.12 Hr
40 mg PO BID
melatonin 5 mg Tablet, Ir And Er, Biphasic
5 mg PO HS
magnesium oxide 400 mg magnesium Tablet
400 mg PO BID
polyethylene glycol 3350 [HealthyLax] 17 gram powder in packet
17 g PO HS
Referrals:
Edwin Ugarte MD [Family Provider] -
Interventions
Interventions:
*Risk Screen - Suicide Last Done: 12/19/23 08:55
*General Assessment Last Done: 12/19/23 08:55
*Neglect/Abuse Screening Last Done: 12/19/23 08:55
*ED COVID-19 Vaccine History Last Done: 12/19/23 08:55
BP-Lfrvgj-Blqhnbbegm Assessment Last Done: 12/19/23 09:09
ED- Cardiac Assessment Last Done: 12/19/23 09:09
ED- Pulmonary Assessment Last Done: 12/19/23 09:09
Discharge Date and Time
Print Language: CZECH
[2023-12-19] MEDS: PROTONIX IV 80 MG IV (10:27)
--- NOTE | 2023-12-19 10:41 | HPS.HSE ---
Family Physician
-
Family Physician: Edwin Ugarte
Chief Complaint
-
Rectal bleeding
History of Present Illness
78-year-old female intermediate resident sent in for evaluation of hematochezia. Symptoms started 3 days ago. Eliquis was discontinued at the time.
Bleeding increased today. Passing large volume of blood with clots. Denies any cardiovascular or GI symptoms otherwise.
Does admit to feeling depressed and lacks desire to live any longer.
Medical History
Past Medical History
Past Medical History: Reports Other
Additional Past Medical History:
Paroxysmal atrial fibrillation
CKD 3A
DM 2
Essential hypertension
Chronic diastolic heart failure
CAD
Chronic pain syndrome
GERD
Hyperlipidemia
Past Surgical History: Reports None
Social History
Tobacco: Non-smoker
Alcohol: None
Drug: None
Living: Skilled Nursing
Family History
Family History: Not pertinent
Allergies / Home Medications
Allergies reflects when Allergies were last updated in [email or web address].
Home Medications with original date entered in [email or web address]
Allergy/Medication List:
Allergies
Allergy/AdvReac Type Severity Reaction Status Date / Time
No Known Allergies Allergy Unverified 02/03/18 16:09
Home Medications
acetaminophen 325 mg tablet (Tylenol) 650 mg PO Q6HPRN PRN mild pain 06/01/23
bisacodyl 10 mg rectal suppository (Dulcolax (bisacodyl)) 10 mg HI DAILYPRN PRN if no bm aftr mom 06/01/23
carvedilol 12.5 mg tablet (Coreg) 6.25 mg PO BID Blood Pressure 06/01/23
docusate sodium 100 mg capsule (Colace) 100 mg PO BID Constipation 06/01/23
furosemide 20 mg tablet (Lasix) 20 mg PO DAILY Fluid Retention/Swelling 06/01/23
magnesium hydroxide 400 mg/5 mL oral suspension (Milk of Magnesia) 2,400 mg PO [id number] PRN if no bm by 3rd day 06/01/23
sennosides 8.6 mg tablet (senna) 8.6 mg PO BID Constipation 06/01/23
sodium phosphates 19 gram-7 gram/118 mL enema (Fleet Enema) 118 ml HI DAILYPRN PRN if no bm aftr dulcolax 06/01/23
apixaban 5 mg tablet (Eliquis) 5 mg PO BID #60 tabs 06/06/23
Saccharomyces boulardii 250 mg capsule (Florastor) 250 mg PO BID 12/19/23
ammonium lactate 5 % lotion (Lac-Hydrin Five) 1 applic topical BID ble 12/19/23
diclofenac sodium 1 % topical gel 0 g topical TID right wrist 12/19/23
lidocaine 4 % topical patch 1 patch topical DAILY b/l shoulders 12/19/23
magnesium oxide 400 mg PO BID 12/19/23
melatonin 5 mg tablet,immediate and extended release 5 mg PO HS 12/19/23
menthol 4 % topical gel (Biofreeze (menthol)) 1 applic topical HS upper back,b/l shoulder 12/19/23
oxycodone 40 mg tablet,crush resistant,extended release 12 hr (OxyContin) 40 mg PO BID 12/19/23
pantoprazole 40 mg tablet,delayed release (Protonix) 40 mg PO BID 12/19/23
polyethylene glycol 3350 17 gram oral powder packet (HealthyLax) 17 g PO HS 12/19/23
potassium chloride 20 mEq tablet,extended release 20 meq PO BID 12/19/23
simethicone 80 mg chewable tablet 80 mg PO [id number] PRN gas pains 12/19/23
simvastatin 10 mg tablet (Zocor) 10 mg PO HS 12/19/23
therapeutic multivitamin 1 tab PO DAILY 12/19/23
trazodone 50 mg tablet 25 mg PO HS 12/19/23
Review of Systems
-
History Source: Patient
A 12 point ROS was completed and negative except as noted: Yes
Physical Exam
Vital Signs
Vital Signs
Temp Pulse Resp BP Pulse Ox
97.4 F 87 15 125/87 98
12/19/23 08:55 12/19/23 09:04 12/19/23 09:04 12/19/23 09:04 12/19/23 09:09
Physical Exam
General: Well Developed, Well Nourished, No Apparent Distress and Comfortable
HEENT: NormoCephalic, Anicteric and Moist mucous membranes
Respiratory: Clear
Cardiac: S1/S2 and Regular Rhythm
GI: Soft, Non Tender and Distended
Genito-urinary: Deferred by me
Musculoskeletal: No Clubbing, No Cyanosis, Edema, Left Lower Extremity and Edema, Right Lower Extremity
Skin: Warm and Dry
Neuro: AO x 3
Hematologic/Lymphatic: No Lymphadenopathy
Psych: Calm and Depressed
Laboratory Results
-
12/19/23 09:04
12/19/23 09:04
Laboratory Results
PT 16.8 Sec (11.4-14.6) H 12/19/23 09:04
INR 1.35 12/19/23 09:04
APTT 33.3 Sec (23.4-35.0) 12/19/23 09:04
Total Bilirubin 1.0 mg/dl (0.2-1.3) 12/19/23 09:04
AST 32 U/L (14-36) 12/19/23 09:04
ALT 13 U/L (0-35) 12/19/23 09:04
Alkaline Phosphatase 143 U/L (38-126) H 12/19/23 09:04
Impression/Plan
-
Acute GI bleed -hemodynamically stable. Admit to MedSurg. Clear liquid diet. Consult GI service. Continue IV Protonix. Hold Eliquis. Monitor hemoglobin.
Chronic anemia -baseline hemoglobin around 8, currently 9.9. Monitor in setting of acute GI bleed.
Major depression -psychiatry consulted.
Chronic pain syndrome/chronic opiate dependence -on OxyContin 40 mg twice daily.
Also complaining of significant right wrist pain for the past week. Continue topical diclofenac. She reportedly had an x-ray of the wrist in the intermediate that was negative.
Functional paraplegia -has not walked in 3 months.
Paroxysmal atrial fibrillation -hold Eliquis as above.
CKD 3A -stable.
Chronic heart failure preserved EF -stable.
Essential hypertension -stable.
DM2 without hyperglycemia -glucose 110 this morning. Hemoglobin A1c will be unreliable in the setting of chronic anemia. Appears to be diet controlled, not on diabetes medications currently.
CAD -stable.
Hyperlipidemia -on simvastatin.
Obesity due to excess calories
DNR -discussed with patient.
--- NOTE | 2023-12-19 11:44 | CON.GI ---
Addendum entered and electronically signed by Yael Jorgensen DO 12/19/23 14:23:
Patient seen and examined independently of [facility]. I agree with her note with my additions below:
Irma is a 78-year-old female with history of paroxysmal A-fib on Eliquis stopped 3 days before admission due to small amount of rectal bleeding at her usp with no prior GIB. She also has anemia at baseline throughout the year she has been
between 7-9 with last normal hemoglobin in 2017. She has not walked since April due to lower extremity weakness and back pain for which she is on narcotics. This morning she had painless larger bloody BM with clots. No further episodes since
then. The whole time she has been hemodynamically stable pulses in the 80s on a small dose of Coreg. Her hemoglobin is at baseline. She denies any significant abdominal pain just the sensation of gurgling. She had no significant abdominal pain
before coming in. Denies any significant constipation. She does have significant GERD and regurgitation on daily PPI. She has had no imaging on this admission but prior ER visit in May [address] scan without IV or oral contrast because
of hematuria. On that study she is status postcholecystectomy and does have numerous bile duct calculi with a common bile duct measuring 14 mm. No gross intrahepatic ductal dilatation. Otherwise degenerative changes of the sacroiliac joints.
Last EGD in 2018 with Lilian for heartburn placed on Dexilant
Never had colonoscopy and doesn't want one.
# painless hematochezia
-- HDstable with no drop in hgb
-- etiology - diverticular vs hemorrhoidal vs stercoral colitis vs ischemic vs angioectasia vs neoplasm vs upper GIB
-- most likely diverticular - maroon clots without pain
-- patient has never had a colonoscopy and doesn't want one
-- check xray to ensure no significant constipation, not impacted on Urszula's exam
-- ok for BID ppi (received 80mg IV)
-- q6 H/H today, monitor VS, 2 large bore IVs, type and screen
-- if she has clinically significant overt bleeding, would send for CTA
-- daughter will be visiting tomorrow
#incidental knowledge of her biliary stones - picked up on imaging review from May 2023
-- asymptomatic
-- bili is normal, mild elevation in alk phos (check GGT)
-- will discuss with her the options, consider u/s pending her decision to investigate
-- risks of not removing them include infection
# significant depression per primary
Original Note:
Consultation
-
Date/Time Consultation Requested: 12/19/23 1130
Date/Time Consultation Performed: 12/19/23 1145
Requesting Provider: Miguel Pitts MD
Performing Provider: VIVIAN Keith, Yael Jorgensen DO
Reason for Consultation: rectal bleeding
Medical History
Chief Complaint / HPI
Chief Complaint: rectal bleeding
History of Present Illness:
Pt is a 78yo with hx PAF on Eliquis(stopped 3 days ago with bleeding), CKD, DM type 2, HTN, chronic diastolic heart failure, CAD with prior stent , chronic pain, GERD, HH, prior PUD, depression, LE numbness and baseline anemia presents with onset
of rectal bleeding. Per ER report noted with red blood mixed with stool with passing large amount of blood with clots. On admission Pt note with 9.9. she also admits to suicidal thoughts on admission.
In review with patient she admits no hx bleeding in past. Bleeding began several days ago. She states initially less blood then more blood yesterday and today. She otherwise admits to occasional GERD, dry heaves, ' gurgling in stomach and
diarrhea last week. She otherwise denies dysphagia, odynophagia, vomiting, constipation or black stools. No hx colonoscopy in past. distal hx EGD with Pt recall PUD, HH with Dr. Quintana. Also in review of records noted with CT in May with
concern for common hepatic and common bile duct stones. b/l nephrolithiasis, fatty pancreas, evi changes with sclerosis of iliac and SI joint and proximal femur. degenerative changes with prior vs low suspicion for bony mets.
Past Medical History
Past Medical History: Arrhythmias (PAF), CAD, CHF, GERD, HTN, Hypercholesterolemia, NIDDM, Renal Failure (CKD), Psychiatric (depression) and Other (chronic pain syndrome, LE numbness with weakness, obesity, PUD, hiatal hernia )
Past Surgical History: Cardiac (stent )
Social History
Tobacco: Non-Smoker
Alcohol: None
Drug: None
Living: Residential
Employment: Retired
Family History
Family History: Other (no family hx colon Ca or polyps, daughter with current work up for diarrhea due for colonoscopy )
Allergies / Home Medications
Allergy/AdvReac Type Severity Reaction Status Date / Time
No Known Allergies Allergy Unverified 02/03/18 16:09
�Medication �Instructions �Recorded
acetaminophen 325 mg tablet 650 mg PO Q6HPRN PRN mild pain 06/01/23
(Tylenol)
bisacodyl 10 mg rectal suppository 10 mg WV DAILYPRN PRN if no bm 06/01/23
(Dulcolax (bisacodyl)) aftr mom
carvedilol 12.5 mg tablet (Coreg) 6.25 mg PO BID Blood Pressure 06/01/23
docusate sodium 100 mg capsule 100 mg PO BID Constipation 06/01/23
(Colace)
furosemide 20 mg tablet (Lasix) 20 mg PO DAILY Fluid 06/01/23
Retention/Swelling
magnesium hydroxide 400 mg/5 mL 2,400 mg PO [id number] PRN if no bm 06/01/23
oral suspension (Milk of Magnesia) by 3rd day
sennosides 8.6 mg tablet (senna) 8.6 mg PO BID Constipation 06/01/23
sodium phosphates 19 gram-7 118 ml WV DAILYPRN PRN if no bm 06/01/23
gram/118 mL enema (Fleet Enema) aftr dulcolax
apixaban 5 mg tablet (Eliquis) 5 mg PO BID #60 tabs 06/06/23
Saccharomyces boulardii 250 mg 250 mg PO BID 12/19/23
capsule (Florastor)
ammonium lactate 5 % lotion 1 applic topical BID ble 12/19/23
(Lac-Hydrin Five)
diclofenac sodium 1 % topical gel 0 g topical TID right wrist 12/19/23
lidocaine 4 % topical patch 1 patch topical DAILY b/l shoulders 12/19/23
magnesium oxide 400 mg PO BID 12/19/23
melatonin 5 mg tablet,immediate 5 mg PO HS 12/19/23
and extended release
menthol 4 % topical gel (Biofreeze 1 applic topical HS upper back,b/l 12/19/23
(menthol)) shoulder
oxycodone 40 mg tablet,crush 40 mg PO BID 12/19/23
resistant,extended release 12 hr
(OxyContin)
pantoprazole 40 mg tablet,delayed 40 mg PO BID 12/19/23
release (Protonix)
polyethylene glycol 3350 17 gram 17 g PO HS 12/19/23
oral powder packet (HealthyLax)
potassium chloride 20 mEq 20 meq PO BID 12/19/23
tablet,extended release
simethicone 80 mg chewable tablet 80 mg PO [id number] PRN gas pains 12/19/23
simvastatin 10 mg tablet (Zocor) 10 mg PO HS 12/19/23
therapeutic multivitamin 1 tab PO DAILY 12/19/23
trazodone 50 mg tablet 25 mg PO HS 12/19/23
Review of Systems
-
History Source: Patient
Constitutional: Reports Fatigue
EENT: Reports No Symptoms
Respiratory: Reports No Symptoms
Cardiac: Reports No Symptoms
Abdomen/GI: Reports Abdominal Pain, Nausea (dry heaves), Diarrhea and Bloody Stools
: Reports No Symptoms
Musculoskeletal: Reports Other (LE numbness)
Skin: Reports No Symptoms
Neurological: Reports Weakness
Endocrine: Reports No Symptoms
Hematologic/Lymphatic: Reports Bleeding
Vital Signs
Temp Pulse Resp BP Pulse Ox
97.4 F 85 15 112/79 99
12/19/23 08:55 12/19/23 11:15 12/19/23 11:15 12/19/23 11:00 12/19/23 11:27
Physical Exam
Exam
General: Well Developed, Well Nourished, No Apparent Distress and Other (pale appearing)
HEENT: Normocephalic and Anicteric
Respiratory: Clear
Cardiac: Regular Rhythm
GI: Soft, Non Tender and Non Distended
Rectal: Other (some limitation with turning patient to side but no impaction, some pieces of stool and darker red blood with clot and red on card, no mass with limited exam )
Musculoskeletal: No Clubbing and No Cyanosis
Skin: Warm and Dry
Neuro: Awake, Alert and AO x 3
Psych: Calm
Results
WBC 6.1 10^3/uL (4.8-10.8) 12/19/23 09:04
Hgb 9.9 g/dL (12.0-16.0) L 12/19/23 09:04
Hct 29.9 % (37.0-47.0) L 12/19/23 09:04
MCV 100.0 fL (81.0-99.0) H 12/19/23 09:04
Plt Count 318 10^3/uL (130-400) 12/19/23 09:04
Absolute Neuts (auto) 4.6 10^3/uL (1.4-6.5) 12/19/23 09:04
PT 16.8 Sec (11.4-14.6) H 12/19/23 09:04
INR 1.35 12/19/23 09:04
APTT 33.3 Sec (23.4-35.0) 12/19/23 09:04
Sodium 141 mmol/L (135-145) 12/19/23 09:04
Potassium 4.2 mmol/L (3.5-5.1) 12/19/23 09:04
Chloride 108 mmol/L (98-107) H 12/19/23 09:04
Carbon Dioxide 22 mmol/L (22-30) 12/19/23 09:04
BUN 23 mg/dl (7-17) H 12/19/23 09:04
Creatinine 1.0 mg/dL (0.6-1.0) 12/19/23 09:04
Calcium 8.0 mg/dl (8.4-10.2) L 12/19/23 09:04
Total Bilirubin 1.0 mg/dl (0.2-1.3) 12/19/23 09:04
AST 32 U/L (14-36) 12/19/23 09:04
ALT 13 U/L (0-35) 12/19/23 09:04
Alkaline Phosphatase 143 U/L (38-126) H 12/19/23 09:04
Diagnostic Image Results:
CT Abd/pel Without Iv Or Oral
IMPRESSION: Status post cholecystectomy. There are numerous rounded foci of increased density within the common hepatic duct and the common bile duct, which are highly suspicious for bile duct calculi. No gross evidence for intrahepatic bile duct
dilation. The common bile duct measures up to 14 mm, which is considered dilated, with top normal considered 10 mm.
Bilateral nephrolithiasis. The bladder is mildly distended. There is bilateral pelvicalyceal and ureteral dilation as well as ureteral tortuosity. No evidence for obstructing ureteral calculus bilaterally. These findings could be on the basis of
moderate bladder distention. Please correlate with the patient having any difficulty in voiding the bladder.
Severe fatty infiltration of the pancreas.
Large overhanging pannus of the abdomen and pelvis. There is also an umbilical broad-based hernia, containing a loop of nonobstructed bowel.
Bony degenerative changes as described. Prominent sclerosis involving the iliac aspect of both sacroiliac joints, and there is a 2 cm focus of sclerosis within the medial proximal right femur. The sclerosis within the sacroiliac joints is somewhat
unusual, although felt to most likely be an atypical degenerative finding. This may be also on the basis of previous insufficiency fracture. Findings are felt to be of relatively low suspicion for bony metastatic disease. If any previous CT
examinations can be obtained, comparison to those exams would be helpful. If further imaging evaluation for bony metastatic disease is desired, a nuclear medicine bone scan could be considered.
Prior GI Procedures:
EGD: in past Dr. Quintana
Colonoscopy: none
Assessment / Plan
-
Pt is a 78yo with hx PAF on Eliquis(stopped 3 days ago with bleeding), CKD, DM type 2, HTN, chronic diastolic heart failure, CAD with prior stent , chronic pain, GERD, HH, prior PUD, depression, LE numbness and baseline anemia presents with onset
of rectal bleeding. Per ER report noted with red blood mixed with stool with passing large amount of blood with clots. On admission Pt note with 9.9. she also admits to suicidal thoughts on admission. No hx colonoscopy in past. distal hx EGD
with Pt recall PUD, HH with Dr. Quintana. Also in review of records noted with CT in May with concern for common hepatic and common bile duct stones. b/l nephrolithiasis, fatty pancreas, bony changes with sclerosis of iliac and SI joint and
proximal femur. degenerative changes with prior vs low suspicion for bony mets.
-rectal bleeding
-anemia
-Afib on Eliquis prior to admission
-may 2023 with common bile and common hepatic duct stones
-mild alk phos elevation
other medical problems:
-CKD
-DM type 2
-HTN
-chronic CHF
-CAD with prior stent
-chronic pain
-GERD
-HH
-Hx PUD
-depression
-LE numbness/weakness sclerotic changes on prior CT in May
PLAN:
Etiology of bleeding related to diverticular bleed, constipation/stercoral colitis vs underlying mass with no hx colon screening vs other
plan for abd X ray to assess for stool burden
if increased bleeding consider CTA if creat allow
trend hbg and stool pattern
cont PPI
add iron studies
ok for clear diet
discussed colonoscopy -- pt would like to use only as last resort
Dr. Jorgensen to further review for noted bile duct stones on CT in May -- only minimal alk phos elevation
for psych eval with concern for depression/suicidal thoughts on admission
cont dulcolax and senna
Eliquis remains on hold
-
-
Thank you for consultation and allowing me to participate in the patient's care. Please call the [facility] physician during the after hours with any questions or concerns.
[2023-12-19] MEDS: OXYCONTIN (CONTROLLED RELEASE) 40 MG PO ×2 (13:00→21:15)
[2023-12-19 13:35] LABS: Iron 77 ug/dl (37-170)
[2023-12-19 13:45] LABS: Percent Saturation 77 % (20-50); Total Iron Binding Capacity 100 ug/dl (265-497)
--- NOTE | 2023-12-19 13:55 | CON.MD ---
Consultation - Medical
-
patient seen chart reviewed. spoke with nursing, ms moss, and dr trevino. consult ordered patient expressed si while in er. the patient is a 78 year old woman who was hospitalized in april. at that time she found herself unable to get up off
the toilet and family had to call emt's. she wound up at [facility] for snf then realized she could not realistically return home given her infirmity. she has been increasingly unhappy there and feels staff do not meet her needs. she gave
me specific examples as to why she feels neglected by staff eg takes a very long time to get help to use BR when she rings her call button. also alleges she has been told she is too heavy to help at this point. staff do not come to take her to
activities even if she asks so she is very bored and lonely. the patient is here bc rectal bleeding. she admits she is so unhappy with her life that she wishes there were a way for her to get help w assisted suicide but realizes she does not have a
terminal illness so that is not a possibility. she said she has no suicidal plan and it is 'unlikely' that she would take her own life given that she has three kids and grandkids that she is fond of and who generally try to be attentive but 'they
have their own lifes.' she has NO psych hx prior going to [place] in the winter of 20[place]
past psych hx none
medical hx see above. colonoscopy has been suggested but patient refuses.other workup being pursued for now. anemia w hgb 9.9 sl dec calcium cr nl bun inc bp 116/60 hx htn hld cad s/p stent niddm a fib diastolic chf gerd chronic pain gait
disturbance
fh none
substance abuse none
social twice three kids w first h who div second h . she had four stepkids. 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 lives in local [place] family does visit her but they are busy too with their lives
mse alert ox3 cooperative and quite thoughtful. speech and thought process nl no psychosis mood is dysphoric see above re si ave intellig at least. cognition is intact insight judgment seem adequate
dx adjustment d/o w depressed fx vs unspecified depression
plan patient does appear depressed but denies that she would harm self. her depression does seem to be related to the very painful position in which she finds herself. i would advise the family to make a formal complaint and for the patient
herself to speak up about her needs at the nh. generally when the family advocates forcefully for the patient , experience in a nh is improved. she says she was always a forceful go getter type of person but currently feels rather inhibited. she
could also consider changing nursing homes. offered to call d but the family is away at this point for a grandaugh wedding ...do not feel antidep would necessarily be helpful in this situation. i do not feel she needs one to one currently. will
follow
--- NOTE | 2023-12-19 17:01 | PTCARENOTE ---
Pt received from ER into rm [id number]. Pt pulled over from stretcher to bed. Pt tells me that she is not happy with her current situation at [facility]. She states that she feels she would be better off she were no longer alive. Pt seen by psych and she is not
deemed a suicide risk. Call laurent within reach. Pt makes needs known.
[2023-12-19] MEDS: DICLOFENAC 1% TOPICAL GEL 2 GRAM TOPICAL (17:19)
--- NOTE | 2023-12-19 18:56 | CM ---
CM introduced self and role. Patient lives alone at [facility]. She stated that she is either lying in bed or in a recliner. She does not ambulate. She has Dr. Ugarte as her PCP. She uses the pharmacy at [facility], [place]. She has a
daughter for support. She is retired and worked at the [employer] for 15 years.
[2023-12-19] MEDS: DICLOFENAC 1% TOPICAL GEL 100 GRAM TOPICAL (20:20)
[2023-12-19] MEDS: COREG 6.25 MG PO (20:20)
[2023-12-19] MEDS: LAC HYDRIN, AM LACTIN LOTION 1 APPLIC TOPICAL (20:20)
[2023-12-19] MEDS: COLACE 100 MG PO (20:20)
[2023-12-19] MEDS: NSS (PRESERVATIVE FREE) 10 ML IV (20:20)
[2023-12-19] MEDS: PROTONIX IV 40 MG IV (20:20)
[2023-12-19] MEDS: SENOKOT 8.6 MG PO (20:20)
[2023-12-19] MEDS: KCL 20 MEQ PO (20:20)
[2023-12-19] MEDS: MAGNESIUM OXIDE 500 MG PO (20:20)
[2023-12-19] MEDS: DESYREL 25 MG PO (21:15)
[2023-12-19] MEDS: MIRALAX 17 GRAMS PO (21:16)
[2023-12-19] MEDS: MELATONIN 5 MG PO (21:16)
[2023-12-20 07:00] VITALS: BP 94/54
--- NOTE | 2023-12-20 07:18 | W.PN.GI.CBS2 ---
Today's Communication / Plan
-
Please see assessment and plan for details.
Assessment / Plan
-
1. GI bleed: Likely lower, presumed diverticular, much less likely upper GI bleed. Other etiologies including malignancy not excluded the do seem less likely. She has had no bowel movements overnight and has remained hemodynamically stable. She
is not interested in colonoscopy, discussed possible underlying other etiologies including malignancy, still declines colonoscopy. At this point we will advance diet. If she tolerates and no further bleeding then is okay to DC from GI standpoint.
Again with unclear etiology would be likely high risk to restart Eliquis in the future, though could restart in 1 week if indicated with close observation.
2. CBD stones: Chronic, asymptomatic, now with normal essentially normal LFTs. We discussed the possibility of ERCP, though she declines, will hold unless has symptoms of biliary colic.
Subjective
Subjective
Date of Service: December 20, 2023
Patient doing okay, no bowel movements overnight per patient and nursing, no abdominal pain. Complains of back pain with movement.
Objective
Data Reviewed
Laboratory Data:
Laboratory Results
PT 16.8 Sec (11.4-14.6) H 12/19/23 09:04
INR 1.35 12/19/23 09:04
APTT 33.3 Sec (23.4-35.0) 12/19/23 09:04
Total Bilirubin 1.0 mg/dl (0.2-1.3) 12/19/23 09:04
AST 32 U/L (14-36) 12/19/23 09:04
ALT 13 U/L (0-35) 12/19/23 09:04
Alkaline Phosphatase 143 U/L (38-126) H 12/19/23 09:04
Vital Signs and I&O:
Vital Signs
Temp Pulse Resp BP Pulse Ox
97.0 F 82 16 113/53 95
12/19/23 23:45 12/19/23 23:45 12/19/23 23:45 12/19/23 23:45 12/19/23 23:45
I&O
12/19/23 12/20/23 12/21/23
06:59 06:59 06:59
Intake Total 240 / 240
Output Total 170 / 170
Balance 70 / 70
Physical Exam
Physical Exam
General: NAD
Abdomen: normal bowel sounds, soft, no tenderness, no masses or bruits, no ascites
[2023-12-20 08:03] LABS: ALT (SGPT) 11 U/L (0-35); AST (SGOT) 24 U/L (14-36); Albumin 1.6 g/dl (3.5-5.0); Alkaline Phosphatase 113 U/L (38-126); Blood Urea Nitrogen 21 mg/dl (7-17); Calcium 7.5 mg/dl (8.4-10.2); Carbon Dioxide 23 mmol/L (22-30); Chloride 111 mmol/L (98-107); Estimated Creatinine Clearance 46 ml/min; Glucose 88 mg/dl (70-99); Potassium 3.9 mmol/L (3.5-5.1); Sodium 142 mmol/L (135-145); Total Bilirubin 0.7 mg/dl (0.2-1.3); eGFR 57.66
[2023-12-20 08:04] LABS: % Basophils 0.7 % (0-2); % Eosinophils 0.9 % (0-6); % Immature Granulocytes 0.2 % (0-0.5); % Lymphocytes 22.6 % (20.5-51.1); % Monocytes 8.6 % (1.7-9.3); Absolute Monocytes 0.4 10^3/uL (0.1-0.6); Hematocrit 23.3 % (37.0-47.0); Hemoglobin 7.9 g/dL (12.0-16.0); Mean Corp Hgb Conc. 33.9 g/dL (33.0-37.0); Mean Corpuscular Hgb 33.6 pg (27.0-31.0); Mean Corpuscular Volume 99.1 fL (81.0-99.0); Mean Platelet Volume 9.7 fL (7.4-10.4); Nucleated Red Blood Cells % 0 %; Platelet Count 258 10^3/uL (130-400); Red Blood Cell Count 2.35 10^6/uL (4.20-5.40); Red Cell Dist. Width 15.8 % (11.5-14.5); White Blood Cell Count 4.4 10^3/uL (4.8-10.8)
--- NOTE | 2023-12-20 09:04 | W.PN.HOSP.TC ---
Today's Communication/Plan
-
Monitor hemoglobin
Bowel regimen
Decision regarding goals of care
Assessment / Plan
Assessment / Plan
Gen-AAOx3, NAD, obese
HEENT-NC, AT, anicteric, clear oral mm
Neck-supple
CV-reg, no M, +S1/S2
Lungs-clear B/L
Abd-soft, NT, ND
Ext-no edema
Musculoskeletal-no cyanosis, clubbing
Skin-warm and dry
Neuro-grossly non-focal
Psych-calm, cooperative
Acute GI bleed -hemodynamically stable. No further bleeding or bowel movements in the hospital. Hemodynamically stable. Patient so far is declining colonoscopy due to her concerns over risks. I did spend a lot of time explaining the risks and
benefits but she currently is not interested in pursuing any invasive testing. She only wants to consider colonoscopy in the setting of an emergency. What she considers an emergency is heavy bleeding with passage of a lot of clots.
Appreciate gastroenterology input. Diet resumed. Waiting for her to have a bowel movement. Holding Eliquis in the setting of bleeding.
Chronic anemia -baseline hemoglobin around 8, currently 7.9. Monitor in setting of acute GI bleed. Suspect hemoglobin of 9.9 on admission was hemoconcentration.
Major depression -psychiatry consulted. Antidepressants not recommended. No need for one-to-one sitter.
Chronic pain syndrome/chronic opiate dependence -on OxyContin 40 mg twice daily.
Also complaining of significant right wrist pain for the past week. Continue topical diclofenac. She reportedly had an x-ray of the wrist in the [place] [facility] that was negative.
Functional paraplegia -has not walked in 3 months.
Paroxysmal atrial fibrillation -hold Eliquis as above.
CKD 3A -stable.
Chronic heart failure preserved EF -stable.
Essential hypertension -stable.
DM2 without hyperglycemia -glucose 88 this morning. Hemoglobin A1c will be unreliable in the setting of chronic anemia. Appears to be diet controlled, not on diabetes medications currently.
CAD -stable.
Hyperlipidemia -on simvastatin.
Obesity due to excess calories
DNR -discussed with patient.
Updated daughter Devora on the phone. She will visit her mother today to try to assess her goals of care. Will discuss with mother regarding plans for colonoscopy, try to change her mind.
I explained to patient that decision regarding resumption of anticoagulation is up to her depending on her preferences in terms of prevention of further bleeding versus prevention of stroke.
Anticipated Discharge: Within 24 hours
Subjective/Interval History
-
Date of Service: December 20, 2023
Patient seen and examined. No bowel movement or bleeding so far in the hospital. No complaints.
Objective Data
-
Labs:
Laboratory Results
12/20/23
06:47
WBC 4.4 L
Hgb 7.9 L D
Hct 23.3 L
Plt Count 258
Sodium 142
Potassium 3.9
Chloride 111 H
Carbon Dioxide 23
BUN 21 H
Creatinine 1.0
Glucose 88
Calcium 7.5 L
Total Bilirubin 0.7
AST 24
ALT 11
Alkaline Phosphatase 113
Vital Signs:
Vital Signs
Temp Pulse Resp BP Pulse Ox
97.8 F 76 20 94/54 96
12/20/23 07:00 12/20/23 07:00 12/20/23 07:00 12/20/23 07:00 12/20/23 07:00
I&O
12/19/23 12/20/23 12/21/23
06:59 06:59 06:59
Intake Total 240 / 240
Output Total 170 / 170
Balance 70 / 70
Review of Systems
-
History Source: Patient
All other systems: Reviewed and negative
[2023-12-20] MEDS: OXYCONTIN (CONTROLLED RELEASE) 40 MG PO ×2 (09:57→20:20)
[2023-12-20] MEDS: COLACE 100 MG PO ×2 (10:06→20:20)
[2023-12-20] MEDS: LIDOCAINE 4% PATCH 1 PATCH TOPICAL (10:07)
[2023-12-20] MEDS: COREG 6.25 MG PO (10:12)
[2023-12-20] MEDS: KCL 20 MEQ PO ×2 (10:12→20:20)
[2023-12-20] MEDS: SENOKOT 8.6 MG PO ×2 (10:13→20:20)
[2023-12-20] MEDS: NSS (PRESERVATIVE FREE) 10 ML IV ×2 (10:13→20:20)
[2023-12-20] MEDS: PROTONIX IV 40 MG IV ×2 (10:14→20:20)
[2023-12-20] MEDS: LASIX 20 MG PO (10:17)
[2023-12-20] MEDS: DICLOFENAC 1% TOPICAL GEL 100 GRAM TOPICAL ×3 (10:18→22:10)
[2023-12-20] MEDS: LAC HYDRIN, AM LACTIN LOTION 1 APPLIC TOPICAL ×2 (10:19→20:20)
[2023-12-20] MEDS: MAGNESIUM OXIDE 500 MG PO ×2 (10:30→20:20)
--- NOTE | 2023-12-20 11:00 | CM ---
Chart reviewed and patient was admitted from [facility], dependency case manager spoke with admissions and they confirmed that patient is a care home resident at their facility, all clinicals faxed to [facility], plan is to return to
[facility] when stable.
Plan; [facility] when stable.
Report [phone]
--- NOTE | 2023-12-20 13:24 | W.PN.UPDATE ---
Update Note
Progress Note Update
patient seen chart reviewed. discussed with nursing. the patient was very forthcoming. she explained her refusal to do colonoscopy. she knows the details of the prep and cannot see herself needing to move her bowels frequently in terms of the
logistics required to get her on and off the toilet or bedpan or commode. she feels it would just be too painful and disruptive to her . she also says that if she were to of this malady it would be okay. she added 'i don't want to but if it
happened...i have had a good life and i could accept t hat.' she is of sound mind in my opinion and can refuse treatment as long as she understands the consequences which i feel she does. i did alert the nurse that the purewick container seemed
very bloody to me. nursing will address. psych will offer support if she remains here tomorrow.
[2023-12-20] MEDS: DULCOLAX 10 MG PO (14:33)
[2023-12-20 17:11] VITALS: BP 125/63
[2023-12-20] MEDS: COREG PO (20:20)
[2023-12-20] MEDS: DESYREL 25 MG PO (21:37)
[2023-12-20] MEDS: MELATONIN 5 MG PO (21:37)
[2023-12-20] MEDS: MIRALAX 17 GRAMS PO (21:37)
[2023-12-20 23:29] VITALS: BP 100/58
[2023-12-21 06:06] LABS: % Basophils 0.4 % (0-2); % Eosinophils 0.8 % (0-6); % Immature Granulocytes 0.2 % (0-0.5); % Lymphocytes 25.2 % (20.5-51.1); % Monocytes 6.3 % (1.7-9.3); % Neutrophils 67.1 % (42.2-75.2); Absolute Lymphocytes 1.3 10^3/uL (1.2-3.4); Absolute Monocytes 0.3 10^3/uL (0.1-0.6); Absolute Neutrophils 3.5 10^3/uL (1.4-6.5); Hemoglobin 7.9 g/dL (12.0-16.0); Mean Corp Hgb Conc. 32.9 g/dL (33.0-37.0); Mean Corpuscular Volume 97.2 fL (81.0-99.0); Mean Platelet Volume 9.8 fL (7.4-10.4); Nucleated Red Blood Cells % 0 %; Platelet Count 255 10^3/uL (130-400); Red Blood Cell Count 2.47 10^6/uL (4.20-5.40); White Blood Cell Count 5.2 10^3/uL (4.8-10.8)
[2023-12-21 07:00] VITALS: BP 106/58
[2023-12-21] MEDS: OXYCONTIN (CONTROLLED RELEASE) 40 MG PO ×2 (09:00→20:21)
[2023-12-21] MEDS: MAGNESIUM OXIDE 500 MG PO ×2 (09:00→20:21)
[2023-12-21] MEDS: SENOKOT 8.6 MG PO ×2 (09:00→20:22)
[2023-12-21] MEDS: LASIX 20 MG PO (09:00)
[2023-12-21] MEDS: LIDOCAINE 4% PATCH 1 PATCH TOPICAL ×2 (09:01→11:14)
[2023-12-21] MEDS: PROTONIX IV 40 MG IV ×2 (09:01→23:25)
[2023-12-21] MEDS: NSS (PRESERVATIVE FREE) 10 ML IV ×2 (09:01→23:25)
[2023-12-21] MEDS: COLACE 100 MG PO ×2 (09:01→20:21)
[2023-12-21] MEDS: COREG 6.25 MG PO ×2 (09:01→20:20)
[2023-12-21] MEDS: KCL 20 MEQ PO ×2 (09:02→20:21)
[2023-12-21] MEDS: DICLOFENAC 1% TOPICAL GEL 100 GRAM TOPICAL ×2 (09:03→17:03)
[2023-12-21] MEDS: LAC HYDRIN, AM LACTIN LOTION 1 APPLIC TOPICAL (09:04)
--- NOTE | 2023-12-21 09:51 | W.PN.GI.CBS2 ---
Today's Communication / Plan
-
Please see assessment and plan for details.
Assessment / Plan
-
1. GI bleed: Likely lower, presumed diverticular, much less likely upper GI bleed. Other etiologies including malignancy not excluded the do seem less likely. She has had no further signs of gross bleeding. She is not interested in colonoscopy,
discussed possible underlying other etiologies including malignancy, still declines colonoscopy. Again with unclear etiology would be likely high risk to restart Eliquis in the future, though could restart in 1 week if indicated with close
observation.
2. CBD stones: Chronic, asymptomatic, now with normal essentially normal LFTs. We discussed the possibility of ERCP, though she declines, will hold unless has symptoms of biliary colic.
We will sign off now, please contact with any further questions.
Subjective
Subjective
Date of Service: December 21, 2023
Patient doing okay, no further gross bleeding, tolerating diet without difficulty, no abdominal pain, nausea or vomiting.
Objective
Data Reviewed
Laboratory Data:
Laboratory Results
12/21/23 05:31
12/20/23 06:47
Laboratory Results
PT 16.8 Sec (11.4-14.6) H 12/19/23 09:04
INR 1.35 12/19/23 09:04
APTT 33.3 Sec (23.4-35.0) 12/19/23 09:04
Total Bilirubin 0.7 mg/dl (0.2-1.3) 12/20/23 06:47
AST 24 U/L (14-36) 12/20/23 06:47
ALT 11 U/L (0-35) 12/20/23 06:47
Alkaline Phosphatase 113 U/L (38-126) 12/20/23 06:47
Vital Signs and I&O:
Vital Signs
Temp Pulse Resp BP Pulse Ox
97.9 F 81 18 106/58 96
12/21/23 07:00 12/21/23 07:00 12/21/23 07:00 12/21/23 07:00 12/21/23 07:00
I&O
12/20/23 12/21/23 12/22/23
06:59 06:59 06:59
Intake Total 240 / 240 660 / 660
Output Total 170 / 170 825 / 825
Balance 70 / 70 -165 / -165
Physical Exam
Physical Exam
General: NAD
Abdomen: normal bowel sounds, soft, no tenderness, no masses or bruits, no ascites
--- NOTE | 2023-12-21 10:31 | W.PN.HOSP.TC ---
Today's Communication/Plan
-
Monitor hemoglobin
Assessment / Plan
Assessment / Plan
Gen-AAOx3, NAD, obese
HEENT-NC, AT, anicteric, clear oral mm
Neck-supple
CV-reg, no M, +S1/S2
Lungs-clear B/L
Abd-soft, NT, ND
Ext-no edema
Musculoskeletal-no cyanosis, clubbing
Skin-warm and dry
Neuro-grossly non-focal
Psych-calm, cooperative
Acute GI bleed -hemodynamically stable. No further bleeding or bowel movements in the hospital. Hemodynamically stable. Patient so far is declining colonoscopy due to her concerns over risks. I did spend a lot of time explaining the risks and
benefits but she currently is not interested in pursuing any invasive testing. Patient states today that if she has to return to the hospital in the future for ongoing bleeding that she would want comfort measures. I explained to her that if
bleeding recurs in the future then she can certainly do comfort measures but would not need hospitalization for that.
Appreciate gastroenterology input. Diet resumed. Holding Eliquis in the setting of bleeding.
Chronic anemia -baseline hemoglobin around 8, currently 7.9. Monitor in setting of acute GI bleed. Suspect hemoglobin of 9.9 on admission was hemoconcentration. Hemoglobin again 7.9 today.
Major depression -psychiatry consulted. Antidepressants not recommended. No need for one-to-one sitter.
Chronic pain syndrome/chronic opiate dependence -on OxyContin 40 mg twice daily.
Also complaining of significant right wrist pain for the past week. Continue topical diclofenac. She reportedly had an x-ray of the wrist in the longterm that was negative.
Functional paraplegia -has not walked in 3 months.
Paroxysmal atrial fibrillation -hold Eliquis as above. GI recommends resuming in 1 week.
CKD 3A -stable.
Chronic heart failure preserved EF -stable.
Essential hypertension -stable.
DM2 without hyperglycemia -glucose 88 this morning. Hemoglobin A1c will be unreliable in the setting of chronic anemia. Appears to be diet controlled, not on diabetes medications currently.
CAD -stable.
Hyperlipidemia -on simvastatin.
Obesity due to excess calories
DNR -discussed with patient.
Dispo - patient requesting discharge tomorrow. Does not feel ready today. Discussed with case management.
Anticipated Discharge: Within 24 hours
Subjective/Interval History
-
Date of Service: December 21, 2023
Patient seen and examined. No complaints. She claims she had a bowel movement this morning but not documented by nursing. She did not look at it.
Objective Data
-
Labs:
Laboratory Results
12/21/23
05:31
WBC 5.2
Hgb 7.9 L
Hct 24.0 L
Plt Count 255
Vital Signs:
Vital Signs
Temp Pulse Resp BP Pulse Ox
97.9 F 81 18 106/58 96
12/21/23 07:00 12/21/23 07:00 12/21/23 07:00 12/21/23 07:00 12/21/23 07:00
I&O
12/20/23 12/21/23 12/22/23
06:59 06:59 06:59
Intake Total 240 / 240 660 / 660
Output Total 170 / 170 825 / 825
Balance 70 / 70 -165 / -165
Review of Systems
-
History Source: Patient
All other systems: Reviewed and negative
--- NOTE | 2023-12-21 12:41 | CM ---
CM reviewed chart, spoke with Hospitalist, patient for discharge tomorrow, return to LTC [facility]. Update to liaArely oshea, at [facility], update through [facility]. CM will continue to follow for all discharge paning needs.
Plan; [facility] when stable.
Report [phone]
[2023-12-21 15:00] VITALS: BP 97/61
[2023-12-21] MEDS: LAC HYDRIN, AM LACTIN LOTION TOPICAL (20:21)
[2023-12-21] MEDS: PROTONIX 40 MG PO (20:22)
[2023-12-21] MEDS: MIRALAX PO (21:17)
[2023-12-21] MEDS: DESYREL 25 MG PO (21:23)
[2023-12-21] MEDS: MELATONIN 5 MG PO (21:23)
[2023-12-21] MEDS: DICLOFENAC 1% TOPICAL GEL TOPICAL ×2 (21:24→21:28)
--- NOTE | 2023-12-21 23:06 | W.PN.UPDATE ---
Update Note
Progress Note Update
Reported by the nursing staff that the patient had bm with Large amount of bright blood mixed with clots and stool, BP 83/53, hr 88, RR 16, temp 98.1, SPO2 95%
-500 cc NSS bolus given, will start IVF maintenance at low rate 40cc/hr till bp stabilized.
-Stat h&h and will change pantoprazole from po to IV.
-Will monitor h&h and will transfuse as needed.
-Blood consent signed kept in the chart and type & screen ordered.
[2023-12-21] MEDS: NSS 500 IV (23:25)
[2023-12-21 23:36] VITALS: BP 83/53
[2023-12-21 23:51] LABS: Hematocrit 24.1 % (37.0-47.0); Hemoglobin 8.3 g/dL (12.0-16.0)
[2023-12-22] MEDS: NSS 1000 IV ×2 (00:06→18:15)
[2023-12-22 03:18] VITALS: BP 101/48
[2023-12-22 06:00] VITALS: BMI 33.9
[2023-12-22 07:34] VITALS: BP 92/52
[2023-12-22] MEDS: OXYCONTIN (CONTROLLED RELEASE) 40 MG PO ×2 (08:21→20:27)
[2023-12-22 09:54] LABS: % Basophils 0.2 % (0-2); % Eosinophils 0.3 % (0-6); % Immature Granulocytes 0.5 % (0-0.5); % Lymphocytes 18.6 % (20.5-51.1); % Monocytes 6.3 % (1.7-9.3); % Neutrophils 74.1 % (42.2-75.2); Absolute Lymphocytes 1.2 10^3/uL (1.2-3.4); Absolute Monocytes 0.4 10^3/uL (0.1-0.6); Absolute Neutrophils 4.9 10^3/uL (1.4-6.5); Hematocrit 23.6 % (37.0-47.0); Hemoglobin 7.9 g/dL (12.0-16.0); Mean Corp Hgb Conc. 33.5 g/dL (33.0-37.0); Mean Corpuscular Hgb 32.1 pg (27.0-31.0); Mean Corpuscular Volume 95.9 fL (81.0-99.0); Mean Platelet Volume 9.6 fL (7.4-10.4); Nucleated Red Blood Cells % 0 %; Platelet Count 244 10^3/uL (130-400); Red Blood Cell Count 2.46 10^6/uL (4.20-5.40); Red Cell Dist. Width 16.1 % (11.5-14.5); White Blood Cell Count 6.6 10^3/uL (4.8-10.8)
--- NOTE | 2023-12-22 09:54 | PTCARENOTE ---
pt allowed phlebotomy to draw her blood. she does not wish to eat anything for breakfast. She only took her pain medication first thing this morning asking to take her other pills later. NSS continues at 40ml/hr . She states 'why do all of this
treatment if it isn't helping.' Emotional support provided.
[2023-12-22] MEDS: NSS (PRESERVATIVE FREE) 10 ML IV (10:20)
[2023-12-22] MEDS: LIDOCAINE 4% PATCH 1 PATCH TOPICAL ×2 (10:20)
[2023-12-22] MEDS: LAC HYDRIN, AM LACTIN LOTION 1 APPLIC TOPICAL ×2 (10:21→20:28)
[2023-12-22] MEDS: KCL PO ×2 (10:21→20:26)
[2023-12-22] MEDS: PROTONIX IV 40 MG IV (10:21)
[2023-12-22] MEDS: COLACE PO ×2 (10:21→20:27)
[2023-12-22] MEDS: DICLOFENAC 1% TOPICAL GEL TOPICAL ×2 (10:21→16:38)
[2023-12-22] MEDS: COREG PO ×2 (10:21→20:27)
[2023-12-22] MEDS: LASIX PO (10:22)
[2023-12-22] MEDS: MAGNESIUM OXIDE PO ×2 (10:22→20:27)
[2023-12-22] MEDS: SENOKOT PO ×2 (10:23→20:27)
[2023-12-22 10:33] VITALS: BP 106/53
--- NOTE | 2023-12-22 10:36 | W.PN.HOSP.TC ---
Today's Communication/Plan
-
Discharge
Assessment / Plan
Assessment / Plan
Gen-AAOx3, NAD, obese
HEENT-NC, AT, anicteric, clear oral mm
Neck-supple
CV-reg, no M, +S1/S2
Lungs-clear B/L
Abd-soft, NT, ND
Ext-no edema
Musculoskeletal-no cyanosis, clubbing
Skin-warm and dry
Neuro-grossly non-focal
Psych-calm, cooperative
Acute GI bleed -events overnight noted, did pass blood in her stool last night. Patient so far is declining colonoscopy due to her concerns over risks. I did spend a lot of time explaining the risks and benefits but she currently is not interested
in pursuing any invasive testing. Patient states today that if she has to return to the hospital in the future for ongoing bleeding that she would want comfort measures. I explained to her that if bleeding recurs in the future then she can
certainly do comfort measures but would not need hospitalization for that.
Appreciate gastroenterology input. Diet resumed. Holding Eliquis in the setting of bleeding.
Chronic anemia -baseline hemoglobin around 8, currently 7.9. Monitor in setting of acute GI bleed. Suspect hemoglobin of 9.9 on admission was hemoconcentration. Hemoglobin again 7.9 today.
Major depression -psychiatry consulted. Antidepressants not recommended. No need for one-to-one sitter.
Chronic pain syndrome/chronic opiate dependence -on OxyContin 40 mg twice daily.
Also complaining of significant right wrist pain for the past week. Continue topical diclofenac. She reportedly had an x-ray of the wrist in the senior living that was negative.
Functional paraplegia -has not walked in 3 months.
Paroxysmal atrial fibrillation -hold Eliquis as above. GI recommends resuming in 1 week.
CKD 3A -stable.
Chronic heart failure preserved EF -stable.
Essential hypertension -stable.
DM2 without hyperglycemia -glucose 88 this morning. Hemoglobin A1c will be unreliable in the setting of chronic anemia. Appears to be diet controlled, not on diabetes medications currently.
CAD -stable.
Hyperlipidemia -on simvastatin.
Obesity due to excess calories
DNR -discussed with patient.
Dispo -I had a long discussion with patient as well as daughter on the phone. Given her poor overall prognosis and low quality of life I recommend transition to hospice in her senior living. Patient agreeable with comfort measures. Daughter
agreeable with hospice.
Recommend not resuming Eliquis in the future given high risk for recurrent bleeding at hospitalization, especially in light of goals of care comfort. Explained to family that obviously not resuming Eliquis could potentially cause a stroke. Family
accepting of that risk.
Discussed with case management plan for discharge today back to senior living.
35 minutes spent in discharge process.
Anticipated Discharge: Today
Subjective/Interval History
-
Date of Service: December 22, 2023
Patient seen and examined. No complaints.
Objective Data
-
Labs:
Laboratory Results
12/21/23 12/21/23 12/22/23
23:15 23:40 09:40
WBC 6.6
Hgb Cancelled 8.3 L 7.9 L
Hct Cancelled 24.1 L
Plt Count
12/22/23 12/22/23 12/22/23
09:40 09:40 17:15
WBC
Hgb Cancelled Cancelled
Hct 23.6 L Cancelled Cancelled
Plt Count 244
Vital Signs:
Vital Signs
Temp Pulse Resp BP Pulse Ox
98.3 F 79 18 106/53 100
12/22/23 07:34 12/22/23 10:33 12/22/23 07:34 12/22/23 10:33 12/22/23 07:34
I&O
12/21/23 12/22/23 12/23/23
06:59 06:59 06:59
Intake Total 660 / 660 1380 / 1380 1440 / 1440
Output Total 825 / 825 700 / 700
Balance -165 / -165 680 / 680 1440 / 1440
Review of Systems
-
History Source: Patient
All other systems: Reviewed and negative
--- NOTE | 2023-12-22 10:40 | W.DS.TRANS ---
DC Summary - [facility]
-
Discharge Instructions:
Discharge Diagnosis/Procedures Lower GI bleed, chronic anemia, atrial
fibrillation
Diet Regular
Activity As tolerated
Driving Restrictions No driving
Bathing Restrictions None
Blood Work CBC in 1 week
Other Services Hospice
Instructions:
Stand-Alone Forms:
Changes to Home Medications: Yes
Discharge Medications:
DC Medications w/original date entered in [facility]
acetaminophen 325 mg tablet (Tylenol) 650 mg PO Q6HPRN PRN mild pain 06/01/23
bisacodyl 10 mg rectal suppository (Dulcolax (bisacodyl)) 10 mg AK DAILYPRN PRN if no bm aftr mom 06/01/23
carvedilol 12.5 mg tablet (Coreg) 6.25 mg PO BID Blood Pressure 06/01/23
docusate sodium 100 mg capsule (Colace) 100 mg PO BID Constipation 06/01/23
furosemide 20 mg tablet (Lasix) 20 mg PO DAILY Fluid Retention/Swelling 06/01/23
magnesium hydroxide 400 mg/5 mL oral suspension (Milk of Magnesia) 2,400 mg PO [id number] PRN if no bm by 3rd day 06/01/23
sennosides 8.6 mg tablet (senna) 8.6 mg PO BID Constipation 06/01/23
sodium phosphates 19 gram-7 gram/118 mL enema (Fleet Enema) 118 ml AK DAILYPRN PRN if no bm aftr dulcolax 06/01/23
Saccharomyces boulardii 250 mg capsule (Florastor) 250 mg PO BID Gastrointestinal Issue 12/19/23
ammonium lactate 5 % lotion (Lac-Hydrin Five) 1 applic topical BID ble 12/19/23
diclofenac sodium 1 % topical gel 0 g topical TID right wrist 12/19/23
lidocaine 4 % topical patch 1 patch topical DAILY b/l shoulders 12/19/23
magnesium oxide 400 mg PO BID 12/19/23
melatonin 5 mg tablet,immediate and extended release 5 mg PO HS Sleep 12/19/23
menthol 4 % topical gel (Biofreeze (menthol)) 1 applic topical HS upper back,b/l shoulder 12/19/23
pantoprazole 40 mg tablet,delayed release (Protonix) 40 mg PO BID Gastrointestinal Issue 12/19/23
polyethylene glycol 3350 17 gram oral powder packet (HealthyLax) 17 g PO HS Constipation 12/19/23
potassium chloride 20 mEq tablet,extended release 20 meq PO BID Electrolyte Repletion 12/19/23
simethicone 80 mg chewable tablet 80 mg PO [id number] PRN gas pains 12/19/23
simvastatin 10 mg tablet (Zocor) 10 mg PO HS High Cholesterol 12/19/23
therapeutic multivitamin 1 tab PO DAILY Supplement 12/19/23
trazodone 50 mg tablet 25 mg PO HS Depression 12/19/23
oxycodone 40 mg tablet,crush resistant,extended release 12 hr (OxyContin) 40 mg PO BID Pain #4 tabs 12/21/23
Home Medication Changes
Stop Eliquis
Pending Results: No
--- NOTE | 2023-12-22 10:57 | CM ---
Chart reviewed, discussed with Hospitalist. Patient seen bedside, reports she does not feel comfortable discharging to facility today. CM discussed once at facility, patient can transition to Hospice, patient is interested in this, however still
reports she is not comfortable going to LTC today. CM reviewed IMM with patient, not agreeable at this time. Hospitalist updated, will await daughters conversation with patient. CM will continue to follow for all discharge planning needs.
Plan; return to LTC [facility] with transition to Hospice.
--- NOTE | 2023-12-22 12:16 | W.PN.UPDATE ---
Update Note
Progress Note Update
Psychiatry follow up. Chart reviewed. Patient states she is ready for hospice. She states she does not want to but is ok with it given her physical condition and poor quality of life. She exhibits capacity for medical decision making. Psychiatry
will sign off. Please contact team if you have any further concerns.
[2023-12-22 15:55] VITALS: BP 113/48
[2023-12-22] MEDS: TYLENOL 650 MG PO (16:25)
[2023-12-22 20:26] VITALS: BP 115/76
[2023-12-22] MEDS: PROTONIX 40 MG PO (20:28)
[2023-12-22] MEDS: DICLOFENAC 1% TOPICAL GEL 1 GRAM TOPICAL (21:36)
[2023-12-22] MEDS: DESYREL 25 MG PO (21:36)
[2023-12-22] MEDS: MELATONIN 5 MG PO (21:36)
[2023-12-22] MEDS: MIRALAX PO (21:37)
[2023-12-22 23:22] VITALS: BP 111/61
[2023-12-23 06:00] VITALS: BMI 33.6
[2023-12-23 07:41] VITALS: BP 122/61
[2023-12-23 08:00] LABS: % Basophils 0.2 % (0-2); % Eosinophils 0.4 % (0-6); % Immature Granulocytes 0.5 % (0-0.5); % Lymphocytes 10.2 % (20.5-51.1); % Monocytes 3.4 % (1.7-9.3); % Neutrophils 85.3 % (42.2-75.2); Absolute Immature Granulocytes 0.1 10^3/uL (0-0.05); Absolute Monocytes 0.3 10^3/uL (0.1-0.6); Absolute Neutrophils 8.3 10^3/uL (1.4-6.5); Hematocrit 26.4 % (37.0-47.0); Hemoglobin 9.1 g/dL (12.0-16.0); Mean Corp Hgb Conc. 34.5 g/dL (33.0-37.0); Mean Corpuscular Hgb 33.7 pg (27.0-31.0); Mean Corpuscular Volume 97.8 fL (81.0-99.0); Mean Platelet Volume 10.1 fL (7.4-10.4); Nucleated Red Blood Cells % 0.2 %; Platelet Count 290 10^3/uL (130-400); Red Cell Dist. Width 16.3 % (11.5-14.5); White Blood Cell Count 9.7 10^3/uL (4.8-10.8)
[2023-12-23] MEDS: COLACE PO (08:00)
[2023-12-23] MEDS: PROTONIX 40 MG PO (08:01)
[2023-12-23] MEDS: MAGNESIUM OXIDE PO (08:02)
[2023-12-23] MEDS: KCL 20 MEQ PO (08:02)
[2023-12-23] MEDS: COREG PO (08:03)
[2023-12-23] MEDS: DICLOFENAC 1% TOPICAL GEL 1 GRAM TOPICAL (08:03)
[2023-12-23] MEDS: SENOKOT PO (08:04)
[2023-12-23] MEDS: LAC HYDRIN, AM LACTIN LOTION 1 APPLIC TOPICAL (08:04)
[2023-12-23] MEDS: OXYCONTIN (CONTROLLED RELEASE) 40 MG PO (08:04)
[2023-12-23] MEDS: LASIX 20 MG PO (08:04)
[2023-12-23] MEDS: LIDOCAINE 4% PATCH 1 PATCH TOPICAL ×2 (08:05)
--- NOTE | 2023-12-23 11:49 | CM ---
Patient seen bedside, discussed plan for discharge to LTC facility today with transition to hospice. CM spoke with liaison at [facility], will need hospice order, [facility] will set up Hospice once at facility. CM placed call to daughter, Roseline,
discussed plan to return to [facility] with transition to hospice. CM reviewed IMM with daughter, placed in chart.
Plan; [facility], transition to Hospice, 2:00 p.m. ambulance transport
Report [phone]
--- NOTE | 2023-12-23 11:56 | W.PN.HOSP.TC ---
Today's Communication/Plan
-
Discharge to hospice; hold eliquis for 1 week and can consider restarting with close monitoring although if on hospice, then would suggest not to restart
Assessment / Plan
Assessment / Plan
Gen-AAOx3, NAD, obese
HEENT-NC, AT, anicteric, clear oral mm
Neck-supple
CV-reg, no M, +S1/S2
Lungs-clear B/L
Abd-soft, NT, ND
Ext-no edema
Musculoskeletal-no cyanosis, clubbing
Skin-warm and dry
Neuro-grossly non-focal
Psych-calm, cooperative
Acute GI bleed -events overnight noted, did pass blood in her stool last night. Patient so far is declining colonoscopy due to her concerns over risks. I did spend a lot of time explaining the risks and benefits but she currently is not interested
in pursuing any invasive testing. Patient states today that if she has to return to the hospital in the future for ongoing bleeding that she would want comfort measures. I explained to her that if bleeding recurs in the future then she can
certainly do comfort measures but would not need hospitalization for that.
Appreciate gastroenterology input. Diet resumed. Holding Eliquis in the setting of bleeding.
Chronic anemia -baseline hemoglobin around 8, currently 7.9. Monitor in setting of acute GI bleed. Suspect hemoglobin of 9.9 on admission was hemoconcentration. Hemoglobin again 7.9 today.
Major depression -psychiatry consulted. Antidepressants not recommended. No need for one-to-one sitter.
Chronic pain syndrome/chronic opiate dependence -on OxyContin 40 mg twice daily.
Also complaining of significant right wrist pain for the past week. Continue topical diclofenac. She reportedly had an x-ray of the wrist in the correction that was negative.
Functional paraplegia -has not walked in 3 months.
Paroxysmal atrial fibrillation -hold Eliquis as above. GI recommends resuming in 1 week.
CKD 3A -stable.
Chronic heart failure preserved EF -stable.
Essential hypertension -stable.
DM2 without hyperglycemia -glucose 88 this morning. Hemoglobin A1c will be unreliable in the setting of chronic anemia. Appears to be diet controlled, not on diabetes medications currently.
CAD -stable.
Hyperlipidemia -on simvastatin.
Obesity due to excess calories
DNR -discussed with patient.
Dispo: going to hospice
More than 30 minutes spent in discharge including
Final examination of the patient
Summarizing hospital stay
Instructions for continuing care to all relevant caregivers
Preparation of discharge records, prescriptions, and referral forms
Total time spent (35 in minutes):
Anticipated Discharge: Today
Subjective/Interval History
-
Date of Service: December 23, 2023
No acute events
Objective Data
-
Labs:
Laboratory Results
12/23/23
06:54
WBC 9.7
Hgb 9.1 L
Hct 26.4 L
Plt Count 290
Vital Signs:
Vital Signs
Temp Pulse Resp BP Pulse Ox
97.5 F 100 20 122/61 96
12/23/23 07:41 12/23/23 07:41 12/23/23 07:41 12/23/23 07:41 12/23/23 07:41
I&O
12/22/23 12/23/23 12/24/23
06:59 06:59 06:59
Intake Total 1380 / 1380 2520 / 2520
Output Total 700 / 700 600 / 600
Balance 680 / 680 1920 / 1920
Review of Systems
-
History Source: Patient
All other systems: Not reviewed unless documented
Data Reviewed
-
Diagnostic Radiology: Image personally visualized and interpreted and Report Reviewed by me
Labs: Labs Reviewed by me
--- NOTE | 2023-12-23 12:12 | W.DS.TRANS ---
DC Summary - [facility]
-
Discharge Instructions:
Discharge Diagnosis/Procedures Lower GI bleed, chronic anemia, atrial
fibrillation
Diet Regular
Activity As tolerated
Driving Restrictions No driving
Bathing Restrictions None
Blood Work CBC in 1 week if not on hospice
Other Services Hospice
Instructions:
Stand-Alone Forms:
Changes to Home Medications: Yes
Discharge Medications:
DC Medications w/original date entered in [facility]
acetaminophen 325 mg tablet (Tylenol) 650 mg PO Q6HPRN PRN mild pain 06/01/23
bisacodyl 10 mg rectal suppository (Dulcolax (bisacodyl)) 10 mg PA DAILYPRN PRN if no bm aftr mom 06/01/23
carvedilol 12.5 mg tablet (Coreg) 6.25 mg PO BID Blood Pressure 06/01/23
docusate sodium 100 mg capsule (Colace) 100 mg PO BID Constipation 06/01/23
furosemide 20 mg tablet (Lasix) 20 mg PO DAILY Fluid Retention/Swelling 06/01/23
magnesium hydroxide 400 mg/5 mL oral suspension (Milk of Magnesia) 2,400 mg PO [id number] PRN if no bm by 3rd day 06/01/23
sennosides 8.6 mg tablet (senna) 8.6 mg PO BID Constipation 06/01/23
sodium phosphates 19 gram-7 gram/118 mL enema (Fleet Enema) 118 ml PA DAILYPRN PRN if no bm aftr dulcolax 06/01/23
Saccharomyces boulardii 250 mg capsule (Florastor) 250 mg PO BID Gastrointestinal Issue 12/19/23
ammonium lactate 5 % lotion (Lac-Hydrin Five) 1 applic topical BID ble 12/19/23
diclofenac sodium 1 % topical gel 0 g topical TID right wrist 12/19/23
lidocaine 4 % topical patch 1 patch topical DAILY b/l shoulders 12/19/23
magnesium oxide 400 mg PO BID 12/19/23
melatonin 5 mg tablet,immediate and extended release 5 mg PO HS Sleep 12/19/23
menthol 4 % topical gel (Biofreeze (menthol)) 1 applic topical HS upper back,b/l shoulder 12/19/23
pantoprazole 40 mg tablet,delayed release (Protonix) 40 mg PO BID Gastrointestinal Issue 12/19/23
polyethylene glycol 3350 17 gram oral powder packet (HealthyLax) 17 g PO HS Constipation 12/19/23
potassium chloride 20 mEq tablet,extended release 20 meq PO BID Electrolyte Repletion 12/19/23
simethicone 80 mg chewable tablet 80 mg PO [id number] PRN gas pains 12/19/23
simvastatin 10 mg tablet (Zocor) 10 mg PO HS High Cholesterol 12/19/23
therapeutic multivitamin 1 tab PO DAILY Supplement 12/19/23
trazodone 50 mg tablet 25 mg PO HS Depression 12/19/23
oxycodone 40 mg tablet,crush resistant,extended release 12 hr (OxyContin) 40 mg PO BID Pain #4 tabs 12/21/23
Home Medication Changes
holding eliquis
Pending Results: No
[2023-12-23] MEDS: TYLENOL 650 MG PO (13:07)
[2023-12-23 13:29] VITALS: BP 123/78
== END 2023-12-23 14:09 | disposition hospice, home (50) | DRG 378 ==
LOC: 4 WEST ACU 10:54
PROVIDERS: Nurse Practitioner Family; ADMITTING PHYSICIAN Hospitalist; ATTENDING PHYSICIAN Internal Medicine; CONSULT PHYSICIAN Internal Medicine; EMERGENCY PHYSICIAN Emergency Medicine; FAMILY PHYSICIAN Internal Medicine; OTHER PHYSICIAN Psychiatry & Neurology Psychiatry
DX: K92.1 Melena (principal); F11.20 Opioid dependence, uncomplicated; I13.0 Hypertensive heart and chronic kidney disease with heart failure and stage 1 through stage 4 chronic kidney disease, or unspecified chronic kidney disease; I50.32 Chronic diastolic (congestive) heart failure; R45.851 Suicidal ideations; E11.22 Type 2 diabetes mellitus with diabetic chronic kidney disease; E05.90 Thyrotoxicosis, unspecified without thyrotoxic crisis or storm; E66.09 Other obesity due to excess calories; Z68.33 Body mass index [BMI] 33.0-33.9, adult; F32.9 Major depressive disorder, single episode, unspecified; Z66 Do not resuscitate; D64.9 Anemia, unspecified; N18.31 Chronic kidney disease, stage 3a; F44.4 Conversion disorder with motor symptom or deficit; K80.50 Calculus of bile duct without cholangitis or cholecystitis without obstruction; E78.00 Pure hypercholesterolemia, unspecified; G89.4 Chronic pain syndrome; I25.10 Atherosclerotic heart disease of native coronary artery without angina pectoris; Z95.5 Presence of coronary angioplasty implant and graft; I48.0 Paroxysmal atrial fibrillation; K21.9 Gastro-esophageal reflux disease without esophagitis; K44.9 Diaphragmatic hernia without obstruction or gangrene; K59.00 Constipation, unspecified; N20.0 Calculus of kidney; M25.531 Pain in right wrist; R20.0 Anesthesia of skin; R19.7 Diarrhea, unspecified; Z79.01 Long term (current) use of anticoagulants; Z79.899 Other long term (current) drug therapy; Z87.11 Personal history of peptic ulcer disease; Z90.49 Acquired absence of other specified parts of digestive tract
CPT/HCPCS: 74018; 80053; 82728; 83540; 83550; 85014; 85018; 85025; 85610; 85730; 86850; 86900; 86901; 96374; 99285